=== PATIENT | female | born 1970 | race Caucasian/White ===

== ENCOUNTER 2021-11-19 22:21 | Emergency (ER) | payer MEDICARE, OTHER ==
[2021-11-19 22:28] VITALS: TEMP 97.2
[2021-11-19] MEDS ORDERED: ACETAMINOPHEN TAB 500 MG TAB PO STA (22:45)
[2021-11-19 22:52] VITALS: RESP 18
--- NOTE | 2021-11-19 22:54 | ED ---
General Adult HPI - General Chief complaint: Chest Pain Stated complaint: Chest Pain Time Seen by Provider: 11/19/21 22:31 Source: patient Mode of arrival: ambulatory Limitations: no limitations - History of Present Illness Initial comments: 51 year-old female patient presents with multiple complaints. She reports intermittent chest pain for the last two days. Pain comes randomly, no increase with physical activity. States that today the pain has been more constant. Reports a numb, "droopy" feeling over her chin and neck bilaterally. Reports headache. Denies it being the worst headache of her life. States she does feel like she has a "film" over her eyes. Reports feeling short of breath. Denies sweats. Denies any abdominal pain, nausea, vomiting, or diarrhea. Patient denies any recent rash, fever, chills, cough, back pain, dizziness, weakness, hematuria, dysuria, urinary urgency, urinary frequency, or any other complaints. She has history of hypertension. She is a current every day smoker. Family history of CVA and CAD in her father. - Related Data Allergies Allergy/AdvReac Type Severity Reaction Status Date / Time No Known Allergies Allergy Verified 11/19/21 22:25 Review of Systems ROS Statement: Those systems with pertinent positive or pertinent negative responses have been documented in the HPI. ROS Other: All systems not noted in ROS Statement are negative. Past Medical History Past Medical History: Hypertension History of Any Multi-Drug Resistant Organisms: None Reported Past Surgical History: Section, Cholecystectomy, Tonsillectomy Past Psychological History: Bipolar Smoking Status: Current every day smoker Past Alcohol Use History: Occasional Past Drug Use History: None Reported General Exam Limitations: no limitations General appearance: alert, in no apparent distress, other (This is a well- developed, well-nourished adult female) Respiratory exam: Present: normal lung sounds bilaterally. Absent: respiratory distress, wheezes, rales, rhonchi, stridor Cardiovascular Exam: Present: regular rate, normal rhythm, normal heart sounds. Absent: systolic murmur, diastolic murmur, rubs, gallop, clicks GI/Abdominal exam: Present: soft, normal bowel sounds. Absent: distended, tenderness, guarding, rebound, rigid Neurological exam: Present: alert, oriented X3, CN II-XII intact Psychiatric exam: Present: normal affect, normal mood Skin exam: Present: warm, dry, intact, normal color. Absent: rash Course Vital Signs 11/19/21 11/19/21 11/19/21 22:26 22:49 23:40 Temperature 97.2 F L Pulse Rate 69 78 60 Respiratory 20 18 18 Rate Blood Pressure 164/60 186/77 132/54 O2 Sat by Pulse 100 97 97 Oximetry 11/20/21 00:48 Temperature Pulse Rate 76 Respiratory 18 Rate Blood Pressure 139/58 O2 Sat by Pulse 97 Oximetry EKG Findings - EKG Comments: EKG Findings:: EKG obtained at 2239 shows normal sinus rhythm with a ventricular rate of 60, FL interval 204, QRS duration 74, QT 422, QTc 422. No evidence of ST elevation or depression. Medical Decision Making - Medical Decision Making 51-year-old female patient presented to the emergency department for evaluation of intermittent chest pain over the last 3 days. Also reporting some numbness to her chin and neck bilaterally. Neurologically she is intact with no focal deficits, NIH is 0. Labs reviewed and revealed normal troponin. CT brain negative. Chest x-ray is negative. EKG is unremarkable. I did discuss finding s and results with the patient. She does have couple being discharged home at this time to follow-up outpatient with her primary care physician and cardiology. Return parameters were discussed in detail. She verbalizes understanding and agrees with this plan. My attending is Dr. El. - Lab Data Result diagrams: 11/19/21 22:47 11/19/21 22:47 Lab Results 11/19/21 11/19/21 11/19/21 Range/Units 22:47 22:47 22:47 WBC 8.4 (3.8-10.6) k/uL RBC 4.54 (3.80-5.40) m/uL Hgb 14.3 (11.4-16.0) gm/dL Hct 42.4 (34.0-46.0) % MCV 93.5 (80.0-100.0) fL MCH 31.4 (25.0-35.0) pg MCHC 33.6 (31.0-37.0) g/dL RDW 12.6 (11.5-15.5) % Plt Count 222 (150-450) k/uL MPV 9.0 Neutrophils % 54 % Lymphocytes % 38 % Monocytes % 3 % Eosinophils % 2 % Basophils % 0 % Neutrophils # 4.5 (1.3-7.7) k/uL Lymphocytes # 3.2 (1.0-4.8) k/uL Monocytes # 0.3 (0-1.0) k/uL Eosinophils # 0.1 (0-0.7) k/uL Basophils # 0.0 (0-0.2) k/uL PT 9.5 (9.0-12.0) sec INR 0.9 (<1.2) APTT 24.5 (22.0-30.0) sec Sodium 140 (137-145) mmol/L Potassium 3.9 (3.5-5.1) mmol/L Chloride 107 (98-107) mmol/L Carbon Dioxide 25 (22-30) mmol/L Anion Gap 8 mmol/L BUN 18 H (7-17) mg/dL Creatinine 0.92 (0.52-1.04) mg/dL Est GFR (CKD-EPI)AfAm 83 (>60 ml/min/1.73 sqM) Est GFR (CKD-EPI)NonAf 72 (>60 ml/min/1.73 sqM) Glucose 119 H (74-99) mg/dL Calcium 9.3 (8.4-10.2) mg/dL Magnesium 2.1 (1.6-2.3) mg/dL Total Bilirubin 0.3 (0.2-1.3) mg/dL AST 24 (14-36) U/L ALT 18 (4-34) U/L Alkaline Phosphatase 134 H (38-126) U/L Troponin I (0.000-0.034) ng/mL Total Protein 7.2 (6.3-8.2) g/dL Albumin 4.2 (3.5-5.0) g/dL Lipase 164 (23-300) U/L 11/19/21 Range/Units 22:47 WBC (3.8-10.6) k/uL RBC (3.80-5.40) m/uL Hgb (11.4-16.0) gm/dL Hct (34.0-46.0) % MCV (80.0-100.0) fL MCH (25.0-35.0) pg MCHC (31.0-37.0) g/dL RDW (11.5-15.5) % Plt Count (150-450) k/uL MPV Neutrophils % % Lymphocytes % % Monocytes % % Eosinophils % % Basophils % % Neutrophils # (1.3-7.7) k/uL Lymphocytes # (1.0-4.8) k/uL Monocytes # (0-1.0) k/uL Eosinophils # (0-0.7) k/uL Basophils # (0-0.2) k/uL PT (9.0-12.0) sec INR (<1.2) APTT (22.0-30.0) sec Sodium (137-145) mmol/L Potassium (3.5-5.1) mmol/L Chloride (98-107) mmol/L Carbon Dioxide (22-30) mmol/L Anion Gap mmol/L BUN (7-17) mg/dL Creatinine (0.52-1.04) mg/dL Est GFR (CKD-EPI)AfAm (>60 ml/min/1.73 sqM) Est GFR (CKD-EPI)NonAf (>60 ml/min/1.73 sqM) Glucose (74-99) mg/dL Calcium (8.4-10.2) mg/dL Magnesium (1.6-2.3) mg/dL Total Bilirubin (0.2-1.3) mg/dL AST (14-36) U/L ALT (4-34) U/L Alkaline Phosphatase (38-126) U/L Troponin I <0.012 (0.000-0.034) ng/mL Total Protein (6.3-8.2) g/dL Albumin (3.5-5.0) g/dL Lipase (23-300) U/L - Radiology Data Radiology results: report reviewed, image reviewed CT brain without contrast was obtained. Report reviewed in its entirety. Impression by Dr. Hayden shows negative unenhanced head CT scan. Two-view x-ray of the chest is obtained. Report was reviewed in its entirety. Impression by Dr. Hayden shows normal chest. Disposition Clinical Impression: Chest pain, Facial paresthesia Disposition: HOME SELF-CARE Condition: Good Instructions (If sedation given, give patient instructions): Chest Pain (ED), Paresthesia (ED) Additional Instructions: Follow-up with screen printing loader unloader and primary care physician for further evaluation as soon as possible. Return to the emergency department immediately for any new, worsening, or concerning symptoms. Is patient prescribed a controlled substance at d/c from ED?: No Referrals: Mary Marmolejo MD [Primary Care Provider] - 1-2 days Gurpreet Gant MD [STAFF PHYSICIAN] - 1-2 days Time of Disposition: 00:24
[2021-11-19 23:00] LABS: Basophils % (A) 0 %; Eosinophils # (A) 0.1 k/uL (0-0.7); Eosinophils % (A) 2 %; HCT 42.4 % (34.0-46.0); HGB 14.3 gm/dL (11.4-16.0); Lymphocytes # (A) 3.2 k/uL (1.0-4.8); Lymphocytes % (A) 38 %; MCH 31.4 pg (25.0-35.0); MCHC 33.6 g/dL (31.0-37.0); MCV 93.5 fL (80.0-100.0); Monocytes # (A) 0.3 k/uL (0-1.0); Monocytes % (A) 3 %; Neutrophils # (A) 4.5 k/uL (1.3-7.7); Neutrophils % (A) 54 %; Platelet Count 222 k/uL (150-450); RBC 4.54 m/uL (3.80-5.40); RDW 12.6 % (11.5-15.5); WBC 8.4 k/uL (3.8-10.6)
[2021-11-19 23:10] LABS: INR 0.9 (<1.2); Partial Thromboplastin Time 24.5 sec (22.0-30.0); Prothrombin Time 9.5 sec (9.0-12.0)
[2021-11-19 23:19] LABS: Albumin 4.2 g/dL (3.5-5.0); Calcium 9.3 mg/dL (8.4-10.2); Magnesium 2.1 mg/dL (1.6-2.3); Potassium 3.9 mmol/L (3.5-5.1); Total Bilirubin 0.3 mg/dL (0.2-1.3); Total Protein 7.2 g/dL (6.3-8.2)
--- NOTE | 2021-11-19 23:55 | CT ---
EXAMINATION TYPE: CT brain wo con DATE OF EXAM: 11/19/2021 COMPARISON: None HISTORY: Dizziness, Headache CT DLP: 1162.40 mGycm Automated exposure control for dose reduction was used. Ventricles have normal size. There is no mass effect or midline shift. There is no sign of intracrani al hemorrhage. Calvarium is intact. There is normal aeration of the mastoid sinuses. IMPRESSION: Negative unenhanced head CT scan
--- NOTE | 2021-11-19 23:57 | XR ---
EXAMINATION TYPE: XR chest 2V DATE OF EXAM: 11/19/2021 COMPARISON: NONE HISTORY: Chest pain TECHNIQUE: 2 views FINDINGS: Heart and mediastinum are normal. Lungs are clear. Diaphragm is normal. Bony thorax is inta ct. IMPRESSION: Normal chest.
[2021-11-20] MEDS ORDERED: KETOROLAC 15 MG/ML 1 ML VIAL IVP STA (00:23)
[2021-11-20 00:49] VITALS: BP 139/58; PULSE 76
== END 2021-11-20 00:50 | disposition home or self-care (01) ==
LOC: EC 22:21
DX: R06.02 Shortness of breath (principal); R20.2 Paresthesia of skin; I10 Essential (primary) hypertension; F17.200 Nicotine dependence, unspecified, uncomplicated
CPT/HCPCS: 36415; 93005; 80053; 83690; 83735; 84484; 85025; 85610; 85730; 71046; 70450; 99285; J1885

== ENCOUNTER 2021-11-21 17:44 | Emergency (ER) | payer MEDICARE, OTHER ==
[2021-11-21 18:07] VITALS: TEMP 97.6
[2021-11-21] MEDS ORDERED: MORPHINE SULFATE 4 MG/ML SYRINGE IV STA (21:04)
[2021-11-21] MEDS ORDERED: ONDANSETRON 4 MG/2 ML VIAL IVP STA (21:04)
[2021-11-21] MEDS ORDERED: SODIUM CHLORIDE 0.9% 1,000 ML IV STA (21:04)
[2021-11-21 21:58] LABS: Basophils # (A) 0.1 k/uL (0-0.2); Basophils % (A) 1 %; Eosinophils # (A) 0.2 k/uL (0-0.7); Eosinophils % (A) 2 %; HGB 14.1 gm/dL (11.4-16.0); Lymphocytes # (A) 3.7 k/uL (1.0-4.8); Lymphocytes % (A) 34 %; MCH 31.4 pg (25.0-35.0); MCHC 33.7 g/dL (31.0-37.0); MCV 93.1 fL (80.0-100.0); Mean Platelet Volume 9.2; Monocytes # (A) 0.4 k/uL (0-1.0); Monocytes % (A) 4 %; Neutrophils # (A) 6.1 k/uL (1.3-7.7); Neutrophils % (A) 58 %; Platelet Count 211 k/uL (150-450); WBC 10.6 k/uL (3.8-10.6)
[2021-11-21 22:02] LABS: Appearance,Urine Clear (Clear); Bilirubin,Urine Negative (Negative); Blood,Urine Negative (Negative); Color,Urine Light Yellow; Glucose,Urine (UA) Negative (Negative); Ketones,Urine Negative (Negative); Leukocyte Esterase,Urine Negative (Negative); Nitrite,Urine Negative (Negative); Protein,Urine Negative (Negative); Specific Gravity,Urine 1.012 (1.001-1.035); Urobilinogen,Urine <2.0 mg/dL (<2.0)
[2021-11-21 22:09] LABS: ALT 17 U/L (4-34); AST 23 U/L (14-36); African American GFR (CKD) >90 (>60 ml/min/1.73 sqM); Albumin 3.9 g/dL (3.5-5.0); Alkaline Phosphatase 93 U/L (38-126); Anion Gap 9 mmol/L; Blood Urea Nitrogen 16 mg/dL (7-17); Calcium 9.3 mg/dL (8.4-10.2); Carbon Dioxide 23 mmol/L (22-30); Chloride 107 mmol/L (98-107); Glucose 115 mg/dL (74-99); Lipase 90 U/L (23-300); Non-African American GFR(CKD) >90 (>60 ml/min/1.73 sqM); Potassium 3.8 mmol/L (3.5-5.1); Sodium 139 mmol/L (137-145); Total Bilirubin 0.3 mg/dL (0.2-1.3); Total Protein 6.9 g/dL (6.3-8.2)
--- NOTE | 2021-11-22 00:19 | CT ---
EXAM: CT Abdomen and Pelvis With Intravenous Contrast CLINICAL HISTORY: ITS.REASON CT Reason: Lower abdominal pain; back pain TECHNIQUE: Axial computed tomography images of the abdomen and pelvis with intravenous contrast. CTDI is 3337.4 mGy and DLP is 70.47 mGy-cm. This CT exam was performed using one or more of the following dose reduction techniques: automated exposure control, adjustment of the mA and/or kV according to patient size, and/or use of iterative reconstruction technique. COMPARISON: No relevant prior studies available. FINDINGS: Lung bases: Unremarkable. No mass. No consolidation. ABDOMEN: Liver: Unremarkable. No mass. Gallbladder and bile ducts: Previous cholecystectomy. No biliary duct dilation is seen. Pancreas: Unremarkable. No mass. No ductal dilation. Spleen: Unremarkable. No splenomegaly. Adrenals: Unremarkable. No mass. Kidneys and ureters: Unremarkable. No solid mass. No hydronephrosis. Stomach and bowel: Bowel loops are nondilated. There is mild diverticulosis of the left and sigmoid colon. The appendix is normal. No acute inflammatory changes are seen involving the bowel. No mucosal thickening. PELVIS: Appendix: See above. Bladder: Unremarkable. No mass. Reproductive: Unremarkable as visualized. ABDOMEN and PELVIS: Intraperitoneal space: Unremarkable. No free air. No significant fluid collection. Bones/joints: Mild degenerative changes in the lumbar spine. No acute fracture or subluxation. Soft tissues: Unremarkable. Vasculature: Mild calcification of the abdominal aorta. No aneurysm or dissection. Lymph nodes: Unremarkable. No enlarged lymph nodes. IMPRESSION: Bowel loops are nondilated. There is mild diverticulosis of the left and sigmoid colon. The appendix is normal. No acute inflammatory changes are seen involving the bowel.
--- NOTE | 2021-11-22 00:22 | CT ---
EXAM: CT Lumbar Spine With Intravenous Contrast CLINICAL HISTORY: ITS.REASON CT Reason: Low back pain; abd pain TECHNIQUE: Axial computed tomography images of the lumbar spine with intravenous contrast. CTDI is 37.6 mGy and DLP is 3337.4 mGy-cm. This CT exam was performed using one or more of the following dose reduction techniques: automated exposure control, adjustment of the mA and/or kV according to patient size, and/or use of iterative reconstruction technique. COMPARISON: No relevant prior studies available. FINDINGS: Vertebrae: Mild degenerative disc disease and facet arthrosis in the lower lumbar spine. No acute fracture or subluxation is seen. The lumbar spine vertebral body heights are normally maintained. No compression fracture or burst fracture is seen. Discs/spinal canal/neural foramina: At L4-5 there is posterior and right-sided disc bulge measuring 4-5 mm combined with facet sclerosis and hypertrophy narrowing the thecal sac to 6 mm. There is mild left and severe right neural foraminal narrowing. At L3-4 there is mild loss of disc space height with 3 mm broad-based posterior disc bulge combined with facet hypertrophy narrowing the thecal sac to 8-9 mm. At L5-S1 there is 3-4 mm broad-based posterior disc bulge without snuffy and spinal stenosis. There is mild bilateral neural foraminal narrowing. Soft tissues: Unremarkable. IMPRESSION: 1. Mild degenerative disc disease and facet arthrosis in the lower lumbar spine. No acute fracture or subluxation is seen. 2. At L4-5 there is posterior and right-sided disc bulge measuring 4-5 mm combined with facet sclerosis and hypertrophy narrowing the thecal sac to 6 mm. There is mild left and severe right neural foraminal narrowing.
[2021-11-22] MEDS ORDERED: KETOROLAC 15 MG/ML 1 ML VIAL IVP STA (00:50)
[2021-11-22] MEDS ORDERED: DIAZEPAM 5 MG/ML 2 ML INJ IVP STA (00:50)
[2021-11-22] MEDS ORDERED: ACET/COD 300 MG/30 MG STARTER PACK 6 TAB BTL PO STA (00:51)
--- NOTE | 2021-11-22 00:52 | ED ---
General Adult HPI - General Chief complaint: Back Pain/Injury Stated complaint: Back injury Time Seen by Provider: 11/21/21 20:38 Source: patient Mode of arrival: wheelchair Limitations: no limitations - History of Present Illness Initial comments: 51 year-old female patient presents to the emergency department for evaluation of lower back pain and abdominal pain. Patient states a couple of hours prior to coming in she was bending forward to pull up her pants and felt a snap in the right lower back. States that pain went into her buttocks, bilateral hips, and into her abdomen. She does have history of herniated disc. Denies any lower extremity numbness or tingling. Denies any saddle anesthesia or loss of bowel or bladder control. Denies nausea, vomiting, constipation, or diarrhea. Denies fever or chills. States pain does worsen with movement. - Related Data Home Medications Medication Instructions Recorded Confirmed Carvedilol [Coreg] 12.5 mg PO BID 11/21/21 11/21/21 Cholecalciferol [Vitamin D3 (25 25 mcg PO DAILY 11/21/21 11/21/21 Mcg = 1000 Iu)] Folic Acid 0.4 mg PO DAILY 11/21/21 11/21/21 Magnesium Oxide [Mag-Ox] 400 mg PO DAILY 11/21/21 11/21/21 Vitamin B Complex 1 cap PO DAILY 11/21/21 11/21/21 hydroCHLOROthiazide [Hydrodiuril] 12.5 mg PO DAILY 11/21/21 11/21/21 Previous Rx's Medication Instructions Recorded Cyclobenzaprine [Flexeril] 10 mg PO TID #15 tab 11/22/21 Naproxen [EC-Naprosyn] 500 mg PO BID PRN #30 tab 11/22/21 Allergies Allergy/AdvReac Type Severity Reaction Status Date / Time No Known Allergies Allergy Verified 11/21/21 21:52 Review of Systems ROS Statement: Those systems with pertinent positive or pertinent negative responses have been documented in the HPI. ROS Other: All systems not noted in ROS Statement are negative. Past Medical History Past Medical History: Hypertension History of Any Multi-Drug Resistant Organisms: None Reported Past Surgical History: Section, Cholecystectomy, Tonsillectomy Past Psychological History: Bipolar Smoking Status: Current every day smoker Past Alcohol Use History: Occasional Past Drug Use History: None Reported General Exam Limitations: no limitations General appearance: alert, in no apparent distress, other (Physical well- developed, well-nourished adult in no acute distress.) ENT exam: Present: normal exam, normal oropharynx, mucous membranes moist Respiratory exam: Present: normal lung sounds bilaterally. Absent: respiratory distress, wheezes, rales, rhonchi, stridor Cardiovascular Exam: Present: regular rate, normal rhythm, normal heart sounds. Absent: systolic murmur, diastolic murmur, rubs, gallop, clicks GI/Abdominal exam: Present: soft, tenderness (Right lower quadrant, suprapubic, left lower quadrant), normal bowel sounds. Absent: distended, guarding, rebound, rigid Extremities exam: Present: normal inspection, full ROM, normal capillary refill, other (Skin to the lower extremities is pink, warm, dry. Cap refill less than 3 seconds. Pedal and posttibial pulses 2+). Absent: tenderness, pedal edema, joint swelling, calf tenderness Back exam: Present: normal inspection. Absent: vertebral tenderness Neurological exam: Present: alert, oriented X3, CN II-XII intact, other (strength in the lower extremities is 5/5.) Psychiatric exam: Present: normal affect, normal mood Skin exam: Present: warm, dry, intact, normal color. Absent: rash Course Vital Signs 11/21/21 11/22/21 18:05 01:03 Temperature 97.6 F Pulse Rate 70 61 Respiratory 16 18 Rate Blood Pressure 192/73 139/65 O2 Sat by Pulse 100 98 Oximetry Medical Decision Making - Medical Decision Making 51-year-old female patient presented to the emergency department today for evaluation of low back and lower abdominal pain that started after bending forward and feeling a snap in her back. Physical examination did reveal lower abdominal tenderness. She is neurologically intact with no focal deficits. No concerning symptoms for cauda equina. Labs reviewed and are unremarkable. CT of the abdomen and pelvis and lumbar spine were obtained and did reveal a disc bulge at L4 to L5 with severe foraminal narrowing and decrease in size of the thecal sac to 6 mm. I did discuss findings and results with the patient. She is to be discharged to follow-up with her primary care physician for recheck in 1-2 days. Given medication for her discomfort including muscle relaxer and anti-inflammatories. Return parameters were discussed in detail. She verbalizes understanding and agrees with this plan. My attending is Dr. El. - Lab Data Result diagrams: 11/21/21 21:53 11/21/21 21:53 Lab Results 11/21/21 11/21/21 11/21/21 Range/Units 21:53 21:53 21:53 WBC 10.6 (3.8-10.6) k/uL RBC 4.50 (3.80-5.40) m/uL Hgb 14.1 (11.4-16.0) gm/dL Hct 42.0 (34.0-46.0) % MCV 93.1 (80.0-100.0) fL MCH 31.4 (25.0-35.0) pg MCHC 33.7 (31.0-37.0) g/dL RDW 12.0 (11.5-15.5) % Plt Count 211 (150-450) k/uL MPV 9.2 Neutrophils % 58 % Lymphocytes % 34 % Monocytes % 4 % Eosinophils % 2 % Basophils % 1 % Neutrophils # 6.1 (1.3-7.7) k/uL Lymphocytes # 3.7 (1.0-4.8) k/uL Monocytes # 0.4 (0-1.0) k/uL Eosinophils # 0.2 (0-0.7) k/uL Basophils # 0.1 (0-0.2) k/uL Sodium 139 (137-145) mmol/L Potassium 3.8 (3.5-5.1) mmol/L Chloride 107 (98-107) mmol/L Carbon Dioxide 23 (22-30) mmol/L Anion Gap 9 mmol/L BUN 16 (7-17) mg/dL Creatinine 0.72 (0.52-1.04) mg/dL Est GFR (CKD-EPI)AfAm >90 (>60 ml/min/1.73 sqM) Est GFR (CKD-EPI)NonAf >90 (>60 ml/min/1.73 sqM) Glucose 115 H (74-99) mg/dL Calcium 9.3 (8.4-10.2) mg/dL Total Bilirubin 0.3 (0.2-1.3) mg/dL AST 23 (14-36) U/L ALT 17 (4-34) U/L Alkaline Phosphatase 93 (38-126) U/L Total Protein 6.9 (6.3-8.2) g/dL Albumin 3.9 (3.5-5.0) g/dL Lipase 90 (23-300) U/L Urine Color Light Yellow Urine Appearance Clear (Clear) Urine pH 5.0 (5.0-8.0) Ur Specific [place] 1.012 (1.001-1.035) Urine Protein Negative (Negative) Urine Glucose (UA) Negative (Negative) Urine Ketones Negative (Negative) Urine Blood Negative (Negative) Urine Nitrite Negative (Negative) Urine Bilirubin Negative (Negative) Urine Urobilinogen <2.0 (<2.0) mg/dL Ur Leukocyte Esterase Negative (Negative) - Radiology Data Radiology results: report reviewed, image reviewed CT abdomen and pelvis was obtained with contrast. Report was reviewed in its entirety. Impression by Dr. Nation shows mild degenerative disc disease and facet arthrosis in the lower lumbar spine. No acute fracture or subluxation is seen. At L4 to 5 years posterior and right-sided disc bulge measuring 4-5 mm combined with facet sclerosis and hypertrophy narrowing the thecal sac to 6 mm. There is mild left and severe right neural foraminal narrowing. CT abdomen and pelvis with contrast was obtained. Report was reviewed in its entirety. Impression by Dr. Nation shows bowel loops are not dilated. There is mild diverticulosis of the left and sigmoid colon. The appendix appears normal. No acute inflammatory changes are seen involving the bowel. Disposition Clinical Impression: Acute exacerbation of chronic low back pain Disposition: HOME SELF-CARE Condition: Good Instructions (If sedation given, give patient instructions): Acute Low Back Pain (ED) Additional Instructions: Take medications as directed. Follow-up through primary care physician for recheck in 1-2 days. Return for any new, worsening, or concerning symptoms. Prescriptions: Naproxen [EC-Naprosyn] 500 mg PO BID PRN #30 tab PRN Reason: Pain Cyclobenzaprine [Flexeril] 10 mg PO TID #15 tab Is patient prescribed a controlled substance at d/c from ED?: No Referrals: Mary Marmolejo MD [Primary Care Provider] - 1-2 days Time of Disposition: 00:52
[2021-11-22 01:06] VITALS: BP 139/65; PULSE 61; RESP 18
== END 2021-11-22 01:19 | disposition home or self-care (01) ==
LOC: EC 17:44
DX: M54.50 Low back pain, unspecified (principal); G89.29 Other chronic pain; I10 Essential (primary) hypertension; F17.200 Nicotine dependence, unspecified, uncomplicated
CPT/HCPCS: 36415; 80053; 83690; 85025; 81003; 72132; 74177; 99284; 96374; 96375; J2270; J3360; J2405; J1885; Q9967

== ENCOUNTER 2022-03-16 00:56 | Emergency (ER) | payer MEDICARE, OTHER ==
[2022-03-16 01:01] VITALS: BP 200/79; PULSE 71; RESP 20; TEMP 97.9
== END 2022-03-16 03:54 | disposition left against medical advice (07) ==
LOC: EC 00:56
DX: Z53.21 Procedure and treatment not carried out due to patient leaving prior to being seen by health care provider (principal)
CPT/HCPCS: 93005; 99499

== ENCOUNTER 2022-03-23 14:00 | Observation (INO) | payer MEDICARE, OTHER ==
[2022-03-23 14:08] VITALS: RESP 18
[2022-03-23 14:40] LABS: Basophils # (A) 0.1 k/uL (0-0.2); Basophils % (A) 1 %; Eosinophils # (A) 0.1 k/uL (0-0.7); Eosinophils % (A) 2 %; HCT 41.6 % (34.0-46.0); HGB 13.5 gm/dL (11.4-16.0); Lymphocytes # (A) 1.8 k/uL (1.0-4.8); Lymphocytes % (A) 24 %; MCH 29.4 pg (25.0-35.0); MCHC 32.4 g/dL (31.0-37.0); MCV 90.5 fL (80.0-100.0); Mean Platelet Volume 8.8; Monocytes # (A) 0.4 k/uL (0-1.0); Monocytes % (A) 5 %; Neutrophils # (A) 5.1 k/uL (1.3-7.7); Neutrophils % (A) 67 %; Platelet Count 206 k/uL (150-450); RBC 4.59 m/uL (3.80-5.40); RDW 12.4 % (11.5-15.5); WBC 7.6 k/uL (3.8-10.6)
[2022-03-23 14:51] LABS: ALT 22 U/L (4-34); AST 34 U/L (14-36); African American GFR (CKD) >90 (>60 ml/min/1.73 sqM); Albumin 4.6 g/dL (3.5-5.0); Alkaline Phosphatase 95 U/L (38-126); Anion Gap 10 mmol/L; Blood Urea Nitrogen 15 mg/dL (7-17); Calcium 9.5 mg/dL (8.4-10.2); Carbon Dioxide 23 mmol/L (22-30); Chloride 107 mmol/L (98-107); Glucose 125 mg/dL (74-99); Magnesium 2.3 mg/dL (1.6-2.3); Non-African American GFR(CKD) >90 (>60 ml/min/1.73 sqM); Potassium 4.7 mmol/L (3.5-5.1); Sodium 140 mmol/L (137-145); Total Bilirubin 0.5 mg/dL (0.2-1.3); Total Protein 7.9 g/dL (6.3-8.2)
[2022-03-23 15:12] LABS: INR 0.8 (<1.2); Prothrombin Time 9.5 sec (9.0-12.0)
[2022-03-23 15:21] LABS: Partial Thromboplastin Time 21.1 sec (22.0-30.0)
--- NOTE | 2022-03-23 16:01 | XR ---
EXAMINATION TYPE: XR chest 2V DATE OF EXAM: 03/23/2022 COMPARISON: Prior chest x-ray November 19, 2021 HISTORY: Chest pain today. TECHNIQUE: Frontal and lateral views of the chest are obtained. FINDINGS: There is no suspicious focal air space opacity, pleural effusion, or pneumothorax seen. T he cardiac silhouette size is within normal limits. The osseous structures are intact. IMPRESSION: No acute process. No significant change from prior.
[2022-03-23] MEDS ORDERED: NITROGLYCERIN SL TABS 0.4 MG TAB SUBLINGUAL STA (16:11)
[2022-03-23] MEDS ORDERED: ASPIRIN 81 MG PO STA (16:11)
--- NOTE | 2022-03-23 17:00 | ED ---
General Adult HPI - General Chief complaint: Chest Pain Stated complaint: Chest Pain Time Seen by Provider: 03/23/22 15:45 Source: patient, RN notes reviewed, old records reviewed Mode of arrival: ambulatory Limitations: no limitations - History of Present Illness Initial comments: Patient is a 51-year-old female with past medical history remarkable for hypertension, as well as a family medical history of cardiac disease presents emergency Department complaining of chest pain. Onset was around 10 AM this morning. Describes it as a pleuritic, substernal chest pain that originally was about a 6 out of 10 in nature and currently is 4 out of 10 on my evaluation. Denies shortness of breath. Denies cough. Denies abdominal pain, nausea, vomiting. His no known cardiac history. States that the pain is improved at this time. States it does not radiate. Unknown palliative or provocative factors. Presents for further evaluation. I evaluated the patient when she was placed in a room. Workup was already started. - Related Data Home Medications Medication Instructions Recorded Confirmed Carvedilol [Coreg] 12.5 mg PO BID 11/21/21 03/23/22 Cholecalciferol [Vitamin D3 (25 25 mcg PO DAILY 11/21/21 03/23/22 Mcg = 1000 Iu)] Magnesium Oxide [Mag-Ox] 400 mg PO DAILY 11/21/21 03/23/22 Vitamin B Complex 1 cap PO DAILY 11/21/21 03/23/22 hydroCHLOROthiazide [Hydrodiuril] 12.5 mg PO DAILY 11/21/21 03/23/22 Ascorbic Acid [Vitamin C] 1,000 mg PO DAILY 03/23/22 03/23/22 Aspirin [[place] Aspirin EC] 81 mg PO ONCE PRN 03/23/22 03/23/22 Folic Acid 0.8 mg PO DAILY 03/23/22 03/23/22 Allergies Allergy/AdvReac Type Severity Reaction Status Date / Time No Known Allergies Allergy Verified 03/23/22 17:17 Review of Systems ROS Statement: Those systems with pertinent positive or pertinent negative responses have been documented in the HPI. Review of Systems: CONST: Denies fever EYES: Denies blurry vision ENT: Denies nasal congestion C/V: Endorses chest pain RESP: Denies shortness of breath GI: Denies abdominal pain : Denies dysuria SKIN: Denies rash. MSK: Denies joint pain. NEURO: Denies headache ROS Other: All systems not noted in ROS Statement are negative. Past Medical History Past Medical History: Hypertension History of Any Multi-Drug Resistant Organisms: None Reported Past Surgical History: Section, Cholecystectomy, Tonsillectomy Past Psychological History: Bipolar Smoking Status: Vaper Past Alcohol Use History: Occasional Past Drug Use History: None Reported General Exam - General Exam Comments Initial Comments: General: Appears in no acute distress. HEAD: Normal with no signs of head trauma. EYES: PERRLA, EOMI, conjunctiva normal, no discharge. ENT: Hearing grossly intact, normal oropharynx. RESPIRATORY: Clear breath sounds bilaterally. No wheezes, rales, or rhonchi. C/V: Regular rate and rhythm. S1 and S2 auscultated, no edema, peripheral pulses 2+ and intact throughout. chest pain is nonreproducible on palpation. ABD: Abd is soft, nontender, nondistended EXT: Normal range of motion, no obvious deformity SKIN: No rashes or lesions observed on exposed skin. NEURO: Alert and oriented 4. No focal deficits. Limitations: no limitations Course Vital Signs 03/23/22 14:04 Temperature 97.8 F Pulse Rate 62 Respiratory 18 Rate Blood Pressure 157/74 O2 Sat by Pulse 97 Oximetry Medical Decision Making - Medical Decision Making Based the patient's presentation and physical exam, I'm concerned for possible c ardiopulmonary etiology for her current symptoms. Workup was already starting in triage. EKG shows no signs of acute ischemia. Laboratory studies remarkable for a negative troponin. The remainder of labs are unremarkable. Chest x-ray shows no acute cardio pulmonary process. I think her that I would like to add on a d-dimer at this time to which she was in agreement. We will give her dose of aspirin as well as nitroglycerin. She was in agreement this plan. D-dimer did reveal to be positive at 1.27. I did recommend a CT angiogram at this time and she was in agreement this plan. I spoke to her, she states that nitro tablet eliminated her chest pain. Went from a 4-5/10 to a 0/10. Sling to her that no matter the results of the CT, I would like to keep her overnight. She was in agreement this plan. CT angiogram showed no PE. After the patient. She'll be started on heparin for unstable angina. She was in agreement this plan. Cardiology was consulted, echo was ordered. I spoke with Dr. Hood of [facility] as the patient will be admitted to observation. - Lab Data Result diagrams: 03/23/22 14:34 03/23/22 14:34 Lab Results 03/23/22 03/23/22 03/23/22 Range/Units 14:34 14:34 14:34 WBC 7.6 (3.8-10.6) k/uL RBC 4.59 (3.80-5.40) m/uL Hgb 13.5 (11.4-16.0) gm/dL Hct 41.6 (34.0-46.0) % MCV 90.5 (80.0-100.0) fL MCH 29.4 (25.0-35.0) pg MCHC 32.4 (31.0-37.0) g/dL RDW 12.4 (11.5-15.5) % Plt Count 206 (150-450) k/uL MPV 8.8 Neutrophils % 67 % Lymphocytes % 24 % Monocytes % 5 % Eosinophils % 2 % Basophils % 1 % Neutrophils # 5.1 (1.3-7.7) k/uL Lymphocytes # 1.8 (1.0-4.8) k/uL Monocytes # 0.4 (0-1.0) k/uL Eosinophils # 0.1 (0-0.7) k/uL Basophils # 0.1 (0-0.2) k/uL PT 9.5 (9.0-12.0) sec INR 0.8 (<1.2) APTT 21.1 L (22.0-30.0) sec D-Dimer (<0.60) mg/L FEU Sodium 140 (137-145) mmol/L Potassium 4.7 (3.5-5.1) mmol/L Chloride 107 (98-107) mmol/L Carbon Dioxide 23 (22-30) mmol/L Anion Gap 10 mmol/L BUN 15 (7-17) mg/dL Creatinine 0.72 (0.52-1.04) mg/dL Est GFR (CKD-EPI)AfAm >90 (>60 ml/min/1.73 sqM) Est GFR (CKD-EPI)NonAf >90 (>60 ml/min/1.73 sqM) Glucose 125 H (74-99) mg/dL Calcium 9.5 (8.4-10.2) mg/dL Magnesium 2.3 (1.6-2.3) mg/dL Total Bilirubin 0.5 (0.2-1.3) mg/dL AST 34 (14-36) U/L ALT 22 (4-34) U/L Alkaline Phosphatase 95 (38-126) U/L Troponin I (0.000-0.034) ng/mL NT-Pro-B Natriuret Pep pg/mL Total Protein 7.9 (6.3-8.2) g/dL Albumin 4.6 (3.5-5.0) g/dL 03/23/22 03/23/22 03/23/22 Range/Units 14:34 14:34 16:11 WBC (3.8-10.6) k/uL RBC (3.80-5.40) m/uL Hgb (11.4-16.0) gm/dL Hct (34.0-46.0) % MCV (80.0-100.0) fL MCH (25.0-35.0) pg MCHC (31.0-37.0) g/dL RDW (11.5-15.5) % Plt Count (150-450) k/uL MPV Neutrophils % % Lymphocytes % % Monocytes % % Eosinophils % % Basophils % % Neutrophils # (1.3-7.7) k/uL Lymphocytes # (1.0-4.8) k/uL Monocytes # (0-1.0) k/uL Eosinophils # (0-0.7) k/uL Basophils # (0-0.2) k/uL PT (9.0-12.0) sec INR (<1.2) APTT (22.0-30.0) sec D-Dimer 1.27 H (<0.60) mg/L FEU Sodium (137-145) mmol/L Potassium (3.5-5.1) mmol/L Chloride (98-107) mmol/L Carbon Dioxide (22-30) mmol/L Anion Gap mmol/L BUN (7-17) mg/dL Creatinine (0.52-1.04) mg/dL Est GFR (CKD-EPI)AfAm (>60 ml/min/1.73 sqM) Est GFR (CKD-EPI)NonAf (>60 ml/min/1.73 sqM) Glucose (74-99) mg/dL Calcium (8.4-10.2) mg/dL Magnesium (1.6-2.3) mg/dL Total Bilirubin (0.2-1.3) mg/dL AST (14-36) U/L ALT (4-34) U/L Alkaline Phosphatase (38-126) U/L Troponin I <0.012 <0.012 (0.000-0.034) ng/mL NT-Pro-B Natriuret Pep pg/mL Total Protein (6.3-8.2) g/dL Albumin (3.5-5.0) g/dL 03/23/22 Range/Units 16:11 WBC (3.8-10.6) k/uL RBC (3.80-5.40) m/uL Hgb (11.4-16.0) gm/dL Hct (34.0-46.0) % MCV (80.0-100.0) fL MCH (25.0-35.0) pg MCHC (31.0-37.0) g/dL RDW (11.5-15.5) % Plt Count (150-450) k/uL MPV Neutrophils % % Lymphocytes % % Monocytes % % Eosinophils % % Basophils % % Neutrophils # (1.3-7.7) k/uL Lymphocytes # (1.0-4.8) k/uL Monocytes # (0-1.0) k/uL Eosinophils # (0-0.7) k/uL Basophils # (0-0.2) k/uL PT (9.0-12.0) sec INR (<1.2) APTT (22.0-30.0) sec D-Dimer (<0.60) mg/L FEU Sodium (137-145) mmol/L Potassium (3.5-5.1) mmol/L Chloride (98-107) mmol/L Carbon Dioxide (22-30) mmol/L Anion Gap mmol/L BUN (7-17) mg/dL Creatinine (0.52-1.04) mg/dL Est GFR (CKD-EPI)AfAm (>60 ml/min/1.73 sqM) Est GFR (CKD-EPI)NonAf (>60 ml/min/1.73 sqM) Glucose (74-99) mg/dL Calcium (8.4-10.2) mg/dL Magnesium (1.6-2.3) mg/dL Total Bilirubin (0.2-1.3) mg/dL AST (14-36) U/L ALT (4-34) U/L Alkaline Phosphatase (38-126) U/L Troponin I (0.000-0.034) ng/mL NT-Pro-B Natriuret Pep 59 pg/mL Total Protein (6.3-8.2) g/dL Albumin (3.5-5.0) g/dL - EKG Data -: EKG Interpreted by Me EKG Comments: 12-lead Electrocardiogram Interpretation Note EKG was reviewed and interpreted by myself. 12-lead ECG performed at 1412 is interpreted by me as revealing normal sinus rhythm at a rate of 58 beats per minute. [place] is normal. [place] interval is 228 ms, first-degree block. QRS duration is 80 ms, QTc is 410 ms. Patient has an isolated slight T-wave inversion in lead III.. There were no ST or T wave abnormalities to suggest myocardial ischemia or injury. R wave progression across the precordium was satisfactory. By my interpretation this EKG is non-diagnostic for acute ischemia. Disposition Clinical Impression: Unstable angina Disposition: ADMITTED IP TO THIS HOSP Condition: Stable Time of Disposition: 18:50
--- NOTE | 2022-03-23 19:01 | CT ---
EXAMINATION TYPE: CT chest angio for PE DATE OF EXAM: 03/23/2022 COMPARISON: None HISTORY: Chest pain, elevated d-dimer CT DLP: 466.3 mGycm Automated exposure control for dose reduction was used. CONTRAST: Performed with IV Contrast, patient injected with 100 mL of Isovue 370. There are Three-D postprocessed images. The lungs are clear of infiltrate. No pleural effusion. Heart size is normal. No pericardial effusion . There is no mediastinal adenopathy. There are no hilar masses. Heart size is normal. No evidence of t horacic aortic aneurysm or dissection. There is normal contrast opacification of the pulmonary arteries. No filling defect. The thoracic spine is intact. No compression fracture. Sternum is intact. The ribs are intact. IMPRESSION: Negative CT angiogram of the chest. No evidence of pulmonary embolism.
[2022-03-23] MEDS ORDERED: HEPARIN SODIUM 1,000 UN/ML (10ML VL) IV ONE (19:15)
[2022-03-23] MEDS ORDERED: HEPARIN SODIUM 1,000 UN/ML (10ML VL) IV PRN (19:15)
[2022-03-23] MEDS ORDERED: NALOXONE 0.4 MG/ML 1 ML VIAL IV PRN (19:16)
[2022-03-23] MEDS ORDERED: NITROGLYCERIN SL TABS 0.4 MG TAB SUBLINGUAL PRN (19:16)
[2022-03-23] MEDS: HEPARIN SOD,PORK IN 0.45% NACL 25,000 UNIT in 0.45% NACL 1 250ML.BAG IV SCH (21:41)
--- NOTE | 2022-03-24 01:19 | P.HPIM ---
History of Present Illness H&P Date: 03/23/22 Chief Complaint: Chest pain 51-year-old female with hypertension Patient comes in with sudden onset chest pain claims that woke her up from sleep at around 10:30 am however didn't come to the hospital until later that afternoon around 3 PM when she complained about chest pain persistently she reports severe pain 810 in severity associated with palpitations denies any naus ea vomiting. Denies any cardiac history in the past. Denies any recent travel or injury he works full-time job. In the ED d-dimer was elevated in March the chest was negative Troponins are negative 3 List of the labs are unremarkable Review of Systems Pertinent positives as noted in HPI. All other systems were reviewed and are negative Past Medical History Past Medical History: Hypertension History of Any Multi-Drug Resistant Organisms: None Reported Past Surgical History: Section, Cholecystectomy, Tonsillectomy Past Psychological History: Bipolar Smoking Status: Vaper Past Alcohol Use History: Occasional Past Drug Use History: None Reported - Past Family History Family Family Medical History: Coronary Artery Disease (CAD) Medications and Allergies Home Medications Medication Instructions Recorded Confirmed Type Carvedilol [Coreg] 12.5 mg PO BID 11/21/21 03/23/22 History Cholecalciferol [Vitamin D3 (25 25 mcg PO DAILY 11/21/21 03/23/22 History Mcg = 1000 Iu)] Magnesium Oxide [Mag-Ox] 400 mg PO DAILY 11/21/21 03/23/22 History Vitamin B Complex 1 cap PO DAILY 11/21/21 03/23/22 History hydroCHLOROthiazide [Hydrodiuril] 12.5 mg PO DAILY 11/21/21 03/23/22 History Ascorbic Acid [Vitamin C] 1,000 mg PO DAILY 03/23/22 03/23/22 History Aspirin [[place] Aspirin EC] 81 mg PO ONCE PRN 03/23/22 03/23/22 History Folic Acid 0.8 mg PO DAILY 03/23/22 03/23/22 History Allergies Allergy/AdvReac Type Severity Reaction Status Date / Time No Known Allergies Allergy Verified 03/23/22 17:17 Physical Exam Vitals: Vital Signs Temp Pulse Resp BP Pulse Ox 03/23/22 14:04 97.8 F 62 18 157/74 97 Intake and Output 03/23/22 03/23/22 03/23/22 06:59 14:59 22:59 Other: Weight 106.594 kg Constitutional: No acute distress, conversant, pleasant Eyes: Anicteric sclerae, moist conjunctiva, Pupils equal round reactive to light ENMT: NC/AT Oropharynx clear, no erythema, or exudates Neck: Supple, FROM, no masses, or JVD No carotid bruits No thyromegaly Lungs: Clear to auscultation Clear to percussion Normal respiratory effort, no accessory muscle use Cardiovascular: Heart regular in rate and rhythm, No murmurs, gallops, or rubs No peripheral edema Abdominal: Soft Nontender, no guarding, rebound or rigidity Abdomen moving with respiration Normoactive bowel sounds No hepatomegaly, No splenomegaly No palpable mass No abdominal wall hernia noted Skin: Normal temperature, tone, texture, turgor No induration No subcutaneous nodules No rash, lesions No ulcers Extremities: No digital cyanosis No clubbing Pedal pulses intact and symmetrical Radial pulses intact and symmetrical No calf tenderness Psychiatric: Alert and oriented to person, place and time Appropriate affect fair judgement Neuro Muscles Strength 5/5 in all 4 extremities Sensation to light touch grossly present throughout Cranial nerves II-XII grossly intact No focal sensory deficits Lymphatics: no palpable cervical or supraclavicular , or inguinal lymph nodes Results CBC & Chem 7: 03/23/22 14:34 03/23/22 14:34 Labs: Abnormal Lab Results - Last 24 Hours (Table) 03/23/22 03/23/22 03/23/22 Range/Units 14:34 14:34 14:34 APTT 21.1 L (22.0-30.0) sec D-Dimer 1.27 H (<0.60) mg/L FEU Glucose 125 H (74-99) mg/dL Assessment and Plan Assessment: atypical chest pain rule out ACS EKG no acute changes CXR no acute pathology trops negative X3 hospital monitor monitor vital signs ASA, statin cardiology consult A1c, lipid panel , TSH pain control Currently on heparin drip Elevated d-dimer, CT angiogram of the chest was negative for acute PE Hypertension controlled resume home blood pressure medications Coreg Full code DVT prophylaxis currently on heparin drip started in the ED Anticipated length of stay less than 2 midnights
[2022-03-24 05:27] LABS: INR 0.9 (<1.2); Partial Thromboplastin Time 29.2 sec (22.0-30.0); Prothrombin Time 9.7 sec (9.0-12.0)
[2022-03-24] MEDS: ASPIRIN 81 MG PO SCH (08:29)
[2022-03-24] MEDS: hydroCHLOROthiazide 12.5 MG CAP PO SCH (08:29)
[2022-03-24] MEDS: carvediloL 12.5 MG TAB PO SCH ×2 (08:29→19:06)
[2022-03-24] MEDS: ACETAMINOPHEN TAB 325 MG TAB PO PRN (08:42)
[2022-03-24 09:04] LABS: Basophils # (A) 0.06 X 10*3/uL (0.00-0.10); Basophils % (A) 0.7 %; Eosinophils # (A) 0.17 X 10*3/uL (0.04-0.35); HCT 38.8 % (37.2-46.3); HGB 12.5 g/dL (12.0-15.0); Immature Grans, Automated 0.3 %; Lymphocytes # (A) 3.35 X 10*3/uL (0.90-5.00); Lymphocytes % (A) 38.7 %; MCHC 32.2 g/dL (32.0-37.0); Mean Platelet Volume 12.2 fL (9.5-12.2); Monocytes # (A) 0.53 X 10*3/uL (0.20-1.00); Monocytes % (A) 6.1 %; NRBC Per 100 WBC 0 /100 WBCS (0.0-0.0); Neutrophils # (A) 4.51 X 10*3/uL (1.80-7.70); Neutrophils % (A) 52.2 %; Platelet Count 199 X 10*3/uL (140-440); RBC 4.17 X 10*6/uL (4.10-5.20); RDW 12.3 % (11.5-14.5); WBC 8.65 X 10*3/uL (4.50-10.00)
[2022-03-24 09:08] LABS: Anion Gap 12 mmol/L (10.00-18.00); BUN/Creat Ratio 18.13 Ratio (12.00-20.00)
[2022-03-24 10:47] LABS: Chloride 105; Glucose 109; Potassium 3.9; Sodium 142
[2022-03-24 10:48] LABS: African American GFR (CKD) >90; Blood Urea Nitrogen 14.5; Calcium 8.8
[2022-03-24 10:53] LABS: Carbon Dioxide 25.1
--- NOTE | 2022-03-24 10:58 | CONS ---
CONSULTATION CHIEF COMPLAINT: Chest pain. HISTORY OF PRESENT ILLNESS: Nabila is a 51-year-old lady with hypertension and dyslipidemia as coronary risk factors who presented to hospital complaining of chest pain. She states that she was in her sleep, woke her up with precordial chest discomfort that she describes as a pressure that radiated down to her left arm. Mild to moderate intensity at rest. She was concerned. Came to the hospital and has been admitted as unstable angina. She did not have shortness of breath or diaphoresis. She works at [employer] and does a lot of physical work and there is no prior history of exertional chest pain. There is no history of coronary artery disease or congestive heart failure. At the time of my evaluation this morning, she is chest pain free, hemodynamically stable and in no apparent distress. She is on IV heparin. EKG shows sinus rhythm with poor R-wave progression and nonspecific T-wave changes. She had a CT scan of the chest that was negative for pulmonary embolism. Given her symptoms and the risk factors, I advised her to undergo cardiac catheterization to evaluate her coronary anatomy. The patient understanding risks benefits is going to think over this and make up her mind. If she decides to go through cardiac cath, we will do it tomorrow. If she does not, then they will discharge her home and arrange for an outpatient stress test. PAST MEDICAL HISTORY: Significant for hypertension and dyslipidemia. CURRENT MEDICATIONS: Include aspirin, ascorbic acid, HydroDIURIL, Coreg. ALLERGIES: There are no known drug allergies. FAMILY HISTORY: Significant for premature coronary artery disease. SOCIAL HISTORY: Negative for smoking, EtOH abuse or drug abuse. REVIEW OF SYSTEMS: HEENT is unremarkable. CARDIAC as described above. RESPIRATORY negative. GI negative. GENITOURINARY negative. ALLERGY negative. SKIN negative. MUSCULOSKELETAL: Negative. DERM negative. CONSTITUTIONAL negative. ONCOLOGICAL negative. SUPERVISOR HAND SILVERING negative. Rest of the system review is not relevant. EXAM: Comfortable at rest. Vital signs are stable. There is no jugular venous distention. Carotid upstroke is normal. There is no bruit. Chest exam reveals good air entry bilaterally. Heart exam reveals first and second heart sounds. No gallop. No murmur. No rub. Abdomen is soft, nontender. Examination of extremities did not reveal any edema. Peripheral pulses are felt. LABS: Labs show a hemoglobin of 12.5, platelet count is 199, potassium is 4.7. Creatinine is 0.7. Troponins are negative. BNP is normal. ASSESSMENT AND PLAN: Unstable angina. PLAN: I will continue the patient on the current medications. Review the echocardiogram on her and decide on further course of action what the patient decides tomorrow morning. MECHELLE / SIMIN: [id number] /
--- NOTE | 2022-03-24 11:54 | CA ---
Transthoracic Echo Report Name: Nabila Stiles Age: 51 Gender: F : 1970 Exam Date: 03/24/2022 07:22 Exam Location: [facility] Ht (in): 67 Wt (lb): 235 Ordering Physician: Benjamin Jones MD Attending/Referring Phys: [employer] Superintendent Amanda Higgins RDCS Procedure CPT: Indications: Chest Pain Cardiac Hx: Technical Quality: Good Contrast 1: Total Dose (mL): Contrast 2: Total Dose (mL): MEASUREMENTS (Male / Female) Normal Values 2D ECHO LV Diastolic Diameter PLAX 4.8 cm 4.2 - 5.9 / 3.9 - 5.3 cm LV Systolic Diameter PLAX 1.6 cm IVS Diastolic Thickness 1.1 cm 0.6 - 1.0 / 0.6 - 0.9 cm LVPW Diastolic Thickness 1.2 cm 0.6 - 1.0 / 0.6 - 0.9 cm LV Relative Wall Thickness 0.5 RV Internal Dim ED PLAX 2.6 cm LVOT Diameter 1.8 cm LA Volume 36.6 cm??? 18 - 58 / 22 - 52 cm??? M-MODE Aortic Root Diameter MM 2.7 cm LA Systolic Diameter MM 4.0 cm LA Ao Ratio MM 1.5 MV E Point Septal Separation 1.0 cm AV Cusp Separation MM 1.7 cm DOPPLER AV Peak Velocity 229.9 cm/s AV Peak Gradient 21.1 mmHg AV Mean Velocity 162.7 cm/s AV Mean Gradient 12.0 mmHg AV Velocity Time Integral 52.7 cm AI Peak Velocity 238.0 cm/s AI Peak Gradient 22.7 mmHg AI Pressure Half Time 722.7 ms LVOT Peak Velocity 143.8 cm/s LVOT Peak Gradient 8.3 mmHg AV Area Cont Eq pk 1.6 cm??? MV Area PHT 2.4 cm??? MR Peak Velocity 126.7 cm/s MR Peak Gradient 6.4 mmHg Mitral E Point Velocity 84.2 cm/s Mitral A Point Velocity 81.2 cm/s Mitral E to A Ratio 1.0 MV Deceleration Time 322.5 ms MV E' Velocity 7.5 cm/s Mitral E to MV E' Ratio 11.2 TR Peak Velocity 188.5 cm/s TR Peak Gradient 14.2 mmHg Right Ventricular Systolic Press 18.5 mmHg FINDINGS Left Ventricle Mildly increased septal wall thickness. Mildly increased posterior wall thickness. Left ventricular ejection fraction is estimated at 55-60Normal left ventricular systolic function with no obvious regional wall motion abnormalities. %. Left ventricular cavity size normal. Right Ventricle The right ventricle is normal in size and function. Right Atrium The right atrium is normal in size. Left Atrium The left atrium is normal in size. Mitral Valve Prolapse of the posterior mitral valve leaflet. . There is mild mitral regurgitation. Aortic Valve Mild aortic stenosis with a peak gradient of 21 mmHg and a mean gradient of 12 mmHg. . There is a trace of aortic regurgitation. Tricuspid Valve Structurally normal tricuspid valve without significant stenosis. Pulmonary artery systolic pressure is normal. Trace tricuspid regurgitation. Pulmonic Valve Structurally normal pulmonic valve without significant stenosis. There is no pulmonic regurgitation. Pericardium Normal pericardium without effusion. Aorta Normal aortic root dimension. CONCLUSIONS Left ventricular systolic function is normal Mild aortic stenosis Mild mitral regurgitation Previewed by: Dr. Norm Herrera MD (Electronically Signed) Final Date: 24 Mar 2022 11:53
--- NOTE | 2022-03-24 14:06 | P.PN ---
Subjective Progress Note Date: 03/24/22 Hospital course: Patient is a very pleasant 51-year-old female with a past medical history of hypertension. Patient presented to the emergency department on 03/23/22 with a chief complaint of awakening from sleep with chest pain/pressure accompanied by palpitations. She underwent full evaluation in the emergency department. Chest x-ray negative for acute cardiopulmonary process. CBC and CMP were unremarkable. Troponin was negative at less than 0.012. ProBNP was 59. EKG was completed revealing sinus bradycardia at 58 bpm with a first-degree AV block with AK interval of 228 ms. D-dimer was elevated at 1.27 and a CTA chest was completed negative for pulmonary emboli. Patient was admitted under our services with consultation to cardiology. Troponins trended throughout the night and negative at less than 0.0124 draws. Echocardiogram was completed revealing a normal EF of 55-60% with no significant valvular abnormalities reported. Cardiology evaluating recommending patient to continue heparin infusion with plans to reevaluate tomorrow morning to determine outpatient stress versus inpatient cardiac cath. Physical exam: Patient seen and fully evaluated at the bedside this morning. She was visiting with family. She remains on heparin infusion for treatment of unstable angina. Patient reports currently previously reported chest pain/pressure has resolved but she continues to have a soreness to her midsternal chest. She denies having any other complaints at this time including headache, lightheadedness, dizziness, palpitations, shortness of breath, nausea, or experiencing any numbness/tingling/weakness in her extremities. Patient did discuss with card iology the possibility of cardiac cath versus outpatient stress test. Patient to continue to be monitored overnight and cardiology will reevaluate and give their recommendations in the morning. Patient and family updated on plan and deny having any questions at this time. Patient to continue daily medication regimen with aspirin, carvedilol, hydrochlorothiazide, as well as heparin infusion and as needed sublingual nitro. Vital signs reviewed and stable. General: Nontoxic, no distress and appears stated age. Derm: Skin warm and dry, normal coloration for ethnicity. Head: Atraumatic, normocephalic and symmetric. Eyes: EOMs intact, no lid lag, and anicteric sclera Mouth: no lip lesions, mucus membranes moist Cardiovascular: regular rate and rhythm with normal S1S2, no murmur, positive posterior tibial pulses bilaterally, and cap refill < 2 seconds. Lungs: Respirations even, regular, and unlabored on room air. Lungs CTA bilaterally, no rhonchi, no rales, no wheezing, and no accessory muscle usage. Abdominal: soft, nontender to palpation, no guarding, no appreciable organomeg tisha Ext: ROM intact. No gross muscle atrophy, no edema, no contractures Neuro: Speech clear, face symmetrical and CN II-XII grossly intact with no noted focal neuro deficits Psych: Alert and oriented to person, place, time, and situation. Appropriate and pleasant affect. Assessment and Plan of Care: Chest pain, rule out acute coronary event Unstable angina -Cardiology following, recommending continuation of heparin infusion with plans to reevaluate tomorrow morning to determine outpatient stress test versus inpatient cardiac cath, appreciate further recommendations -Telemetry monitoring -Continuation of heparin infusion -Cardiac diet, NPO at midnight -Aspirin, atorvastatin, and metoprolol -Lipid profile with a.m. labs. -Echocardiogram revealing normal EF of 55-60% Hypertension -Monitor vital signs and continue daily medication regimen with carvedilol 12.5 mg twice daily with meals and hydrochlorothiazide 12.5 mg daily. CODE STATUS: Full code DVT prophylaxis: Heparin Discussed with: Patient, cardiology, and RN Anticipated discharge date: Possibly tomorrow Anticipated discharge place: Home A total of 31 minutes was spent on the care of this complex patient more than 50% of the time was spent in counseling and care coordination. I reviewed the documentation as provided by the MALIKA above, who is the original author of this note. I agree with the documented assessment and plan, with the following changes: None Objective - Vital Signs Vital signs: Vital Signs Temp 98.0 F 03/24/22 08:15 Pulse 49 L 03/24/22 08:15 Resp 18 03/24/22 08:15 BP 145/75 03/24/22 08:15 Pulse Ox 99 03/24/22 08:15 FiO2 Intake & Output 03/23/22 03/24/22 03/24/22 18:59 06:59 18:59 Intake Total 84.325 Balance 84.325 Weight 106.594 kg 106.594 kg Intake: Intake, IV Titration 84.325 Amount Heparin Sod,Pork in 0.45% 84.325 NaCl 25,000 unit In 0.45 % NaCl 1 250ml.bag @ 9.38 UNITS/KG/HR 9.999 mls/hr IV .Q24H [facility] Rx#: [id number] - Labs CBC & Chem 7: 03/24/22 04:33 03/24/22 04:33 Labs: Abnormal Lab Results - Last 24 Hours (Table) 03/23/22 03/23/22 03/23/22 Range/Units 14:34 14:34 14:34 APTT 21.1 L (22.0-30.0) sec D-Dimer 1.27 H (<0.60) mg/L FEU Glucose 125 H (74-99) mg/dL 03/24/22 03/24/22 Range/Units 01:38 11:24 APTT 31.5 H 45.7 H (22.0-30.0) sec D-Dimer (<0.60) mg/L FEU Glucose (74-99) mg/dL
[2022-03-24] MEDS: HEPARIN SOD,PORK IN 0.45% NACL 25,000 UNIT in 0.45% NACL 1 250ML.BAG IV SCH (16:47)
[2022-03-25] MEDS ORDERED: ATORVASTATIN 80 MG TAB PO STA (09:04)
[2022-03-25] MEDS: hydroCHLOROthiazide 12.5 MG CAP PO SCH (09:56)
[2022-03-25] MEDS: ASPIRIN 81 MG PO SCH (09:56)
[2022-03-25] MEDS ORDERED: VERAPAMIL 2.5 MG/ML 2 ML AMP ONE (10:08)
[2022-03-25] MEDS ORDERED: SODIUM CHLORIDE 0.9% 1,000 ML IV ONE (10:20)
[2022-03-25] MEDS ORDERED: fentaNYL (PF) 50 MCG/ML 2 ML AMP ONE (10:40)
[2022-03-25] MEDS: MIDAZOLAM 2 MG/2 ML VIAL IV ONE ×2 (10:40→10:52)
[2022-03-25] MEDS: fentaNYL (PF) 50 MCG/ML 2 ML AMP IV ONE ×2 (10:40→10:51)
[2022-03-25] MEDS ORDERED: LIDOCAINE 1% INJ 10MG/ML (5 ML VIAL-PF) SQ ONE (10:44)
[2022-03-25] MEDS ORDERED: VERAPAMIL SYRINGE (5 MG/10 ML) INTRAARTER ONE (10:45)
[2022-03-25] MEDS ORDERED: HEPARIN SODIUM 1,000 UN/ML (10ML VL) IV ONE ×2 (10:47)
[2022-03-25] MEDS ORDERED: HEPARIN SODIUM 1,000 UN/ML (10ML VL) ONE (10:49)
[2022-03-25] MEDS ORDERED: IOPAMIDOL-370 125ML BTL INJ ONE (10:56)
[2022-03-25] MEDS ORDERED: RX INFO: IV CONTRAST WAS GIVEN 1 EACH MISC MISCELLANE PRN (11:33)
[2022-03-25] MEDS ORDERED: SODIUM CHLORIDE 0.9% 1,000 ML IV SCH (11:45)
--- NOTE | 2022-03-25 12:24 | P.DS ---
Providers Date of admission: 03/23/22 19:16 Expected date of discharge: 03/25/22 Attending physician: Maria Eugenia Hood MD Consults: 03/23/22 19:17 Consult Physician Routine Consulting Provider: [facility] Consult Reason/Comments: unstable angina Do you want consulting provider notified?: Yes Primary care physician: Mary Marmolejo Hospital Course: Discharge Diagnosis: Chest pain, acute coronary event ruled out. Patient underwent cardiac cath showing normal coronary arteries. Hypertension. Monitor vital signs, Coreg decreased to 3.125 mg twice daily with meals and to continue hydrochlorothiazide 12.5 mg daily. Asymptomatic bradycardia, Home dose of carvedilol was decreased to 3.125 mg twice daily with meals. Nicotine dependence, recommend stopping Vaping. Hospital Course: Patient is a very pleasant 51-year-old female with a past medical history of hypertension. Patient presented to the emergency department on 03/23/22 with a chief complaint of awakening from sleep with chest pain/pressure accompanied by palpitations. She underwent full evaluation in the emergency department. Chest x-ray negative for acute cardiopulmonary process. CBC and CMP were unremarkable. Troponin was negative at less than 0.012. ProBNP was 59. EKG was completed revealing sinus bradycardia at 58 bpm with a first-degree AV block with OR interval of 228 ms. D-dimer was elevated at 1.27 and a CTA chest was completed negative for pulmonary emboli. Patient was admitted under our s ervices with consultation to cardiology. Troponins trended throughout the night and negative at less than 0.0124 draws. Echocardiogram was completed revealing a normal EF of 55-60% with no significant valvular abnormalities reported. Patient underwent cardiac cath on 03/25/22. Cardiac cath reporting normal coronary arteries with right dominant circulation. Cardiology stating patient's previous chest discomfort was likely noncardiac in origin and recommending aggressive risk factor modification and continued medical therapy. Patient is medically stable. She was found to have some episodes of bradycardia with heart rate dropping down to 49 bpm. Home dose of carvedilol was decreased to 3.125 mg twice daily with meals. Patient is medically stable at this time. Cardiac access site right wrist showing no signs of bleeding or hematoma. Patient medically stable for discharge at this time. Patient to follow-up with PCP in 1-2 days and cardiology in 1 week. Physical exam: Vital signs reviewed and stable. General: Nontoxic, no distress and appears stated age. Derm: Skin warm and dry, normal coloration for ethnicity. Head: Atraumatic, normocephalic and symmetric. Eyes: EOMs intact, no lid lag, and anicteric sclera Mouth: no lip lesions, mucus membranes moist Cardiovascular: regular rate and rhythm with normal S1S2, no murmur, positive posterior tibial pulses bilaterally, and cap refill < 2 seconds. Lungs: Respirations even, regular, and unlabored on room air. Lungs CTA bilaterally, no rhonchi, no rales, no wheezing, and no accessory muscle usage. Abdominal: soft, nontender to palpation, no guarding, no appreciable organomegaly Ext: ROM intact. No gross muscle atrophy, no edema, no contractures Neuro: Speech clear, face symmetrical and CN II-XII grossly intact with no noted focal neuro deficits Psych: Alert and oriented to person, place, time, and situation. Appropriate and pleasant affect. A total of 35 minutes of time were spent preparing this complex discharge summary. Pt was discharged on 03/25/22 at 12:23 PM. I reviewed the documentation as provided by the MALIKA above, who is the original author of this note. I agree with the documented assessment and plan, with the following changes: None Patient Condition at Discharge: Stable Plan - Discharge Summary Discharge Rx Participant: No New Discharge Prescriptions: New carvediloL [Coreg] 3.125 mg PO BID-W/MEALS 30 Days #60 tab Continue Magnesium Oxide [Mag-Ox] 400 mg PO DAILY Aspirin [[place] Aspirin EC] 81 mg PO ONCE PRN PRN Reason: Chest Pain Vitamin B Complex 1 cap PO DAILY Cholecalciferol [Vitamin D3 (25 Mcg = 1000 Iu)] 25 mcg PO DAILY hydroCHLOROthiazide [Hydrodiuril] 12.5 mg PO DAILY Folic Acid 0.8 mg PO DAILY Ascorbic Acid [Vitamin C] 1,000 mg PO DAILY Discontinued Carvedilol [Coreg] 12.5 mg PO BID Discharge Medication List Cholecalciferol [Vitamin D3 (25 Mcg = 1000 Iu)] 25 mcg PO DAILY 11/21/21 [History] Magnesium Oxide [Mag-Ox] 400 mg PO DAILY 11/21/21 [History] Vitamin B Complex 1 cap PO DAILY 11/21/21 [History] hydroCHLOROthiazide [Hydrodiuril] 12.5 mg PO DAILY 11/21/21 [History] Ascorbic Acid [Vitamin C] 1,000 mg PO DAILY 03/23/22 [History] Aspirin [[place] Aspirin EC] 81 mg PO ONCE PRN 03/23/22 [History] Folic Acid 0.8 mg PO DAILY 03/23/22 [History] carvediloL [Coreg] 3.125 mg PO BID-W/MEALS 30 Days #60 tab 03/25/22 [Rx] Follow up Appointment(s)/Referral(s): Mary Marmolejo MD [Primary Care Provider] - 1-2 days Norm Herrera MD [STAFF PHYSICIAN] - 1 Week Activity/Diet/Wound Care/Special Instructions: Activity: As tolerated. Take breaks as needed. Diet: Heart healthy and carb consistent diet. Avoid salts, or foods with hidden salts such as canned or boxed foods and frozen dinners. Extra salt makes your heart work harder and traps the fluid in your body for longer. Special Instructions: Take all of your medications as directed and remember to keep all of your doctor's appointments and follow-up as needed. Thank you for allowing us to participate in your care, it was truly a pleasure having you for our patient!!! Discharge Disposition: HOME SELF-CARE
--- NOTE | 2022-03-25 12:38 | CC ---
CARDIAC CATHETERIZATION REPORT INDICATION: Unstable angina. PROCEDURE NOTE: After obtaining informed consent, left heart catheterization and coronary angiogram were performed via the right radial artery using size 3-1/2 right and left Cole catheters. Left ventricular hemodynamics were obtained with the right Cole catheter. The patient tolerated the procedure well without any obvious immediate complications. Patient received moderate conscious sedation. Total sedation time was 18 minutes. I obtained right radial artery access using a micropuncture needle with standard Seldinger technique. Catheters and wires were moved into the ascending aorta under fluoroscopic guidance. The patient received 5 mg of verapamil and 5000 units of heparin as per protocol, and a TR band will be applied per standard protocols for hemostasis. FINDINGS: HEMODYNAMICS: Left ventricular end-diastolic pressure is 16 mm. There is no significant gradient across the aortic valve. LEFT VENTRICULOGRAM: Left ventriculogram was not performed. ANGIOGRAPHIC DATA: Right coronary artery is a large dominant vessel and is free of stenosis. Left main coronary artery is a normal-sized vessel and is free of disease. It divides into left anterior descending coronary artery and circumflex coronary artery. LAD and its branches, circumflex coronary artery and its branches are free of significant stenosis. CONCLUSIONS: Normal coronary arteries, right-dominant circulation. PLAN: Patient's chest discomfort is probably noncardiac in origin, and her management is going to be in the form of aggressive risk factor modification and medical therapy. Patient is doing well. We should be able to discharge her home this afternoon. MMODL / IJN: [id number] /
[2022-03-25] MEDS: carvediloL 3.125 MG TAB PO SCH ×2 (13:21→18:47)
[2022-03-25] MEDS: ACETAMINOPHEN TAB 325 MG TAB PO PRN (13:31)
[2022-03-25 14:45] VITALS: BP 138/71; TEMP 98.1
[2022-03-25 18:28] VITALS: PULSE 59
== END 2022-03-25 19:44 | disposition home or self-care (01) ==
LOC: EC 14:00 → 6NMEDSUR 19:16
PROVIDERS: ADMIT Internal Medicine; ATTEND Internal Medicine
DX: R07.89 Other chest pain (principal); I44.0 Atrioventricular block, first degree; R00.1 Bradycardia, unspecified; I10 Essential (primary) hypertension; E78.5 Hyperlipidemia, unspecified; R79.89 Other specified abnormal findings of blood chemistry; F17.290 Nicotine dependence, other tobacco product, uncomplicated; F31.9 Bipolar disorder, unspecified; Z79.899 Other long term (current) drug therapy; Z90.49 Acquired absence of other specified parts of digestive tract; Z98.891 History of uterine scar from previous surgery; Z98.890 Other specified postprocedural states; Z82.49 Family history of ischemic heart disease and other diseases of the circulatory system; Z71.6 Tobacco abuse counseling
CPT/HCPCS: 96376 ×2; 96366 ×3; 96365; 99285; 36415; 93005; 93306; 93458; 85379; 83880; 80053; 80048; 83735; 84484 ×2; 85025 ×2; 85610 ×2; 85730 ×3; 71046; 71275; G0378 ×3; C1894; J2250; J2001; J3010; J1644 ×5; Q9967 ×2

== ENCOUNTER 2022-09-25 04:47 | Emergency (ER) | payer MEDICARE, OTHER ==
[2022-09-25 04:52] VITALS: TEMP 97.5
[2022-09-25 05:35] LABS: Basophils # (A) 0.1 k/uL (0-0.2); Basophils % (A) 1 %; Eosinophils # (A) 0.2 k/uL (0-0.7); Eosinophils % (A) 2 %; HGB 13.1 gm/dL (11.4-16.0); Lymphocytes % (A) 31 %; MCH 30.5 pg (25.0-35.0); MCHC 34.5 g/dL (31.0-37.0); MCV 88.6 fL (80.0-100.0); Mean Platelet Volume 9.1; Monocytes # (A) 0.4 k/uL (0-1.0); Monocytes % (A) 4 %; Neutrophils # (A) 5.8 k/uL (1.3-7.7); Neutrophils % (A) 60 %; Platelet Count 242 k/uL (150-450); RBC 4.29 m/uL (3.80-5.40); RDW 12.9 % (11.5-15.5); WBC 9.6 k/uL (3.8-10.6)
[2022-09-25 05:45] LABS: ALT 25 U/L (4-34); AST 27 U/L (14-36); African American GFR (CKD) >90 (>60 ml/min/1.73 sqM); Albumin 4.2 g/dL (3.5-5.0); Alkaline Phosphatase 131 U/L (38-126); Anion Gap 11 mmol/L; Blood Urea Nitrogen 17 mg/dL (7-17); Calcium 9.4 mg/dL (8.4-10.2); Carbon Dioxide 26 mmol/L (22-30); Chloride 101 mmol/L (98-107); Glucose 129 mg/dL (74-99); Non-African American GFR(CKD) >90 (>60 ml/min/1.73 sqM); Potassium 3.6 mmol/L (3.5-5.1); Sodium 138 mmol/L (137-145); Total Bilirubin 0.3 mg/dL (0.2-1.3); Total Protein 7.2 g/dL (6.3-8.2)
[2022-09-25 05:51] LABS: INR 0.9 (<1.2); Partial Thromboplastin Time 24.3 sec (22.0-30.0); Prothrombin Time 9.5 sec (9.0-12.0)
--- NOTE | 2022-09-25 05:53 | XR ---
EXAMINATION TYPE: XR chest 2V DATE OF EXAM: 09/25/2022 COMPARISON: 03/23/2022 HISTORY: Dysrhythmia TECHNIQUE: FINDINGS: Heart and mediastinum are normal. Lungs are clear. Diaphragm is normal. Bony thorax appears normal. IMPRESSION: Normal chest. No change.
--- NOTE | 2022-09-25 06:45 | ED ---
Arrhythmia/Palpitations HPI - General Chief Complaint: Arrhythmia/Palpitations Stated Complaint: Chest Pain Time Seen by Provider: 09/25/22 05:05 Source: patient Mode of arrival: ambulatory - History of Present Illness Initial Comments: 52-year-old female with past medical history of hypertension presents emergency room and was reporting palpitations. States that her symptoms started yesterday around 6:30. Admits to a generalized chest discomfort with racing heart. Denies any provocative factors. No recent medication changes. No stimulant use. No recent upper respiratory infections or fevers. No shortness of breath. He did not attempt to take any medications for her symptoms. Her racing heart Her awake and therefore she presents for further evaluation. She did have a heart Regular this year which was negative for any disease. She follows with Dr. Alfaro from cardiology. No other alleviating, precipitating or modifying factors - Related Data Home Medications Medication Instructions Recorded Confirmed Cholecalciferol [Vitamin D3 (25 25 mcg PO DAILY 11/21/21 03/23/22 Mcg = 1000 Iu)] Magnesium Oxide [Mag-Ox] 400 mg PO DAILY 11/21/21 03/23/22 Vitamin B Complex 1 cap PO DAILY 11/21/21 03/23/22 hydroCHLOROthiazide [Hydrodiuril] 12.5 mg PO DAILY 11/21/21 03/23/22 Ascorbic Acid [Vitamin C] 1,000 mg PO DAILY 03/23/22 03/23/22 Aspirin [[place] Aspirin EC] 81 mg PO ONCE PRN 03/23/22 03/23/22 Folic Acid 0.8 mg PO DAILY 03/23/22 03/23/22 Previous Rx's Medication Instructions Recorded carvediloL [Coreg] 3.125 mg PO BID-W/MEALS 30 Days 03/25/22 #60 tab Allergies Allergy/AdvReac Type Severity Reaction Status Date / Time No Known Allergies Allergy Verified 09/25/22 04:52 Review of Systems ROS Statement: Those systems with pertinent positive or pertinent negative responses have been documented in the HPI. ROS Other: All systems not noted in ROS Statement are negative. Past Medical History Past Medical History: Fibromyalgia, Hypertension Additional Past Medical History / Comment(s): herniated disks History of Any Multi-Drug Resistant Organisms: None Reported Past Surgical History: Section, Cholecystectomy, Tonsillectomy Past Anesthesia/Blood Transfusion Reactions: Previous Problems w/ Anesthesia Additional Past Anesthesia/Blood Transfusion Reaction / Comment(s): pt reports waking up in the middle of every procedure shes ever had. Past Psychological History: Bipolar Smoking Status: Vaper Past Alcohol Use History: Occasional Past Drug Use History: None Reported - Past Family History Family Family Medical History: Coronary Artery Disease (CAD) General Exam General appearance: alert, in no apparent distress Head exam: Present: atraumatic, normocephalic, normal inspection Eye exam: Present: normal appearance, PERRL, EOMI. Absent: scleral icterus, conjunctival injection, periorbital swelling ENT exam: Present: normal exam, mucous membranes moist Neck exam: Present: normal inspection. Absent: tenderness, meningismus, lymphadenopathy Respiratory exam: Present: normal lung sounds bilaterally. Absent: respiratory distress, wheezes, rales, rhonchi, stridor Cardiovascular Exam: Present: regular rate, normal rhythm, normal heart sounds. Absent: systolic murmur, diastolic murmur, rubs, gallop, clicks GI/Abdominal exam: Present: soft, normal bowel sounds. Absent: distended, tenderness, guarding, rebound, rigid Extremities exam: Present: normal inspection, full ROM, normal capillary refill. Absent: tenderness, pedal edema, joint swelling, calf tenderness Back exam: Present: normal inspection Neurological exam: Present: alert, oriented X3, CN II-XII intact Psychiatric exam: Present: normal affect, normal mood Skin exam: Present: warm, dry, intact, normal color. Absent: rash Course Vital Signs 09/25/22 09/25/22 04:50 07:01 Temperature 97.5 F L Pulse Rate 81 68 Respiratory 17 18 Rate Blood Pressure 157/73 132/76 O2 Sat by Pulse 100 98 Oximetry EKG Findings - EKG Comments: EKG Findings:: EKG was interpreted by myself. Demonstrates sinus rhythm with a rate of 69. ME interval to O2. QRS 86. QTC of 431. No acute ST segment elevations or depressions concerning for ischemic changes or infarction. Medical Decision Making - Medical Decision Making Upon arrival patient was placed into room 2. There are history of physical exam is performed. 12 lead EKG was obtained which demonstrates no acute findings. Patient does remain on continuous pulse ox and cardiac monitoring. It is noted that the patient does have frequent PACs and that her symptoms are related to when she is experiencing these. IV is established laboratory studies were conducted. Chest x-ray was performed and interpreted by myself as negative for any acute process. I did discuss the patient's care with Dr. Pimentel. Due to her low resting heart rate she'll not be placed on any beta blockers at this time. We will set the patient up for a Holter monitor. She will follow up with copy center associate for further management return for any new or worsening symptoms. Patient was agreeable to discharge home in stable condition - Lab Data Result diagrams: 09/25/22 05:12 09/25/22 05:12 Lab Results 09/25/22 09/25/22 09/25/22 Range/Units 05:12 05:12 05:12 WBC 9.6 (3.8-10.6) k/uL RBC 4.29 (3.80-5.40) m/uL Hgb 13.1 (11.4-16.0) gm/dL Hct 38.0 (34.0-46.0) % MCV 88.6 (80.0-100.0) fL MCH 30.5 (25.0-35.0) pg MCHC 34.5 (31.0-37.0) g/dL RDW 12.9 (11.5-15.5) % Plt Count 242 (150-450) k/uL MPV 9.1 Neutrophils % 60 % Lymphocytes % 31 % Monocytes % 4 % Eosinophils % 2 % Basophils % 1 % Neutrophils # 5.8 (1.3-7.7) k/uL Lymphocytes # 3.0 (1.0-4.8) k/uL Monocytes # 0.4 (0-1.0) k/uL Eosinophils # 0.2 (0-0.7) k/uL Basophils # 0.1 (0-0.2) k/uL PT 9.5 (9.0-12.0) sec INR 0.9 (<1.2) APTT 24.3 (22.0-30.0) sec Sodium 138 (137-145) mmol/L Potassium 3.6 (3.5-5.1) mmol/L Chloride 101 (98-107) mmol/L Carbon Dioxide 26 (22-30) mmol/L Anion Gap 11 mmol/L BUN 17 (7-17) mg/dL Creatinine 0.69 (0.52-1.04) mg/dL Est GFR (CKD-EPI)AfAm >90 (>60 ml/min/1.73 sqM) Est GFR (CKD-EPI)NonAf >90 (>60 ml/min/1.73 sqM) Glucose 129 H (74-99) mg/dL Calcium 9.4 (8.4-10.2) mg/dL Total Bilirubin 0.3 (0.2-1.3) mg/dL AST 27 (14-36) U/L ALT 25 (4-34) U/L Alkaline Phosphatase 131 H (38-126) U/L Troponin I (0.000-0.034) ng/mL Total Protein 7.2 (6.3-8.2) g/dL Albumin 4.2 (3.5-5.0) g/dL TSH 2.270 (0.465-4.680) mIU/L 09/25/22 Range/Units 05:12 WBC (3.8-10.6) k/uL RBC (3.80-5.40) m/uL Hgb (11.4-16.0) gm/dL Hct (34.0-46.0) % MCV (80.0-100.0) fL MCH (25.0-35.0) pg MCHC (31.0-37.0) g/dL RDW (11.5-15.5) % Plt Count (150-450) k/uL MPV Neutrophils % % Lymphocytes % % Monocytes % % Eosinophils % % Basophils % % Neutrophils # (1.3-7.7) k/uL Lymphocytes # (1.0-4.8) k/uL Monocytes # (0-1.0) k/uL Eosinophils # (0-0.7) k/uL Basophils # (0-0.2) k/uL PT (9.0-12.0) sec INR (<1.2) APTT (22.0-30.0) sec Sodium (137-145) mmol/L Potassium (3.5-5.1) mmol/L Chloride (98-107) mmol/L Carbon Dioxide (22-30) mmol/L Anion Gap mmol/L BUN (7-17) mg/dL Creatinine (0.52-1.04) mg/dL Est GFR (CKD-EPI)AfAm (>60 ml/min/1.73 sqM) Est GFR (CKD-EPI)NonAf (>60 ml/min/1.73 sqM) Glucose (74-99) mg/dL Calcium (8.4-10.2) mg/dL Total Bilirubin (0.2-1.3) mg/dL AST (14-36) U/L ALT (4-34) U/L Alkaline Phosphatase (38-126) U/L Troponin I <0.012 (0.000-0.034) ng/mL Total Protein (6.3-8.2) g/dL Albumin (3.5-5.0) g/dL TSH (0.465-4.680) mIU/L Disposition Clinical Impression: Palpitations Disposition: HOME SELF-CARE Condition: Stable Instructions (If sedation given, give patient instructions): Heart Palpitations (ED) Additional Instructions: We will set you up with a Holter monitor and an appointment at the cardiology office. If you do not hear from us by tomorrow, please call the cardiology office to make the appointment. Return for any new or worsening symptoms. Is patient prescribed a controlled substance at d/c from ED?: No Referrals: Mary Marmolejo MD [Primary Care Provider] - 1-2 days Norm Herrera MD [STAFF PHYSICIAN] - 10/03/22 2:15 am Time of Disposition: 06:44
[2022-09-25 07:01] VITALS: BP 132/76; PULSE 68; RESP 18
== END 2022-09-25 07:01 | disposition home or self-care (01) ==
LOC: EC 04:47
DX: R00.2 Palpitations (principal); I10 Essential (primary) hypertension; F17.290 Nicotine dependence, other tobacco product, uncomplicated; Z90.49 Acquired absence of other specified parts of digestive tract; Z79.82 Long term (current) use of aspirin
CPT/HCPCS: 36415; 71046; 80053; 84443; 84484; 85025; 85610; 85730; 93005; 99285

== ENCOUNTER 2023-04-25 01:41 | Emergency (ER) | payer OTHER, BC, MEDICARE ==
[2023-04-25 02:09] VITALS: TEMP 97.9
--- NOTE | 2023-04-25 04:00 | ED ---
ENT HPI - General Chief complaint: ENT Stated complaint: [facility] - Nose Injury Time Seen by Provider: 04/25/23 03:15 Source: patient, RN notes reviewed, old records reviewed Mode of arrival: ambulatory Limitations: no limitations - History of Present Illness Initial comments: This is a 52-year-old female to the emergency department for evaluation patient's pain facial injury prior to arrival. Patient was working and had a steel gate hit herself in the nose. Patient does believe she has inflammation and deformity. No other complaints no injuries no loss of consciousness no headache MD complaint: trauma/injury, other (Nose pain) -: hour(s) Location: nose Severity: moderate Severity scale (1-10): 4 Quality: aching Consistency: constant Improves with: none Worsens with: none Associated Symptoms: other (0) - Related Data Home Medications Medication Instructions Recorded Confirmed Cholecalciferol [Vitamin D3 (25 25 mcg PO DAILY 11/21/21 03/23/22 Mcg = 1000 Iu)] Magnesium Oxide [Mag-Ox] 400 mg PO DAILY 11/21/21 03/23/22 Vitamin B Complex 1 cap PO DAILY 11/21/21 03/23/22 hydroCHLOROthiazide [Hydrodiuril] 12.5 mg PO DAILY 11/21/21 03/23/22 Ascorbic Acid [Vitamin C] 1,000 mg PO DAILY 03/23/22 03/23/22 Aspirin [[place] Aspirin EC] 81 mg PO ONCE PRN 03/23/22 03/23/22 Folic Acid 0.8 mg PO DAILY 03/23/22 03/23/22 Previous Rx's Medication Instructions Recorded carvediloL [Coreg] 3.125 mg PO BID-W/MEALS 30 Days 03/25/22 #60 tab Allergies Allergy/AdvReac Type Severity Reaction Status Date / Time No Known Allergies Allergy Verified 04/25/23 02:07 Review of Systems ROS Statement: Those systems with pertinent positive or pertinent negative responses have been documented in the HPI. ROS Other: All systems not noted in ROS Statement are negative. Past Medical History Past Medical History: Fibromyalgia, Hypertension Additional Past Medical History / Comment(s): herniated disks History of Any Multi-Drug Resistant Organisms: None Reported Past Surgical History: Section, Cholecystectomy, Tonsillectomy Additional Past Surgical History / Comment(s): Optic nerve sheath Past Anesthesia/Blood Transfusion Reactions: Previous Problems w/ Anesthesia Additional Past Anesthesia/Blood Transfusion Reaction / Comment(s): pt reports waking up in the middle of every procedure shes ever had. Past Psychological History: Bipolar Smoking Status: Vaper Past Alcohol Use History: Occasional Past Drug Use History: None Reported - Past Family History Family Family Medical History: Coronary Artery Disease (CAD) General Exam Limitations: no limitations General appearance: alert, in no apparent distress Head exam: Present: atraumatic, normocephalic, normal inspection Eye exam: Present: normal appearance, PERRL, EOMI. Absent: scleral icterus, conjunctival injection, periorbital swelling ENT exam: Present: normal exam, mucous membranes moist Neck exam: Present: normal inspection. Absent: tenderness, meningismus, lymphadenopathy Respiratory exam: Present: normal lung sounds bilaterally. Absent: respiratory distress, wheezes, rales, rhonchi, stridor Cardiovascular Exam: Present: regular rate, normal rhythm, normal heart sounds. Absent: systolic murmur, diastolic murmur, rubs, gallop, clicks GI/Abdominal exam: Present: soft, normal bowel sounds. Absent: distended, tenderness, guarding, rebound, rigid Extremities exam: Present: normal inspection, full ROM, normal capillary refill. Absent: tenderness, pedal edema, joint swelling, calf tenderness Back exam: Present: normal inspection Neurological exam: Present: alert, oriented X3, CN II-XII intact Psychiatric exam: Present: normal affect, normal mood Skin exam: Present: warm, dry, intact, normal color. Absent: rash Course Vital Signs 04/25/23 04/25/23 02:07 06:36 Temperature 97.9 F Pulse Rate 78 70 Respiratory 18 16 Rate Blood Pressure 126/57 130/68 O2 Sat by Pulse 98 97 Oximetry - Reevaluation(s) Reevaluation #1: 04/25/23 04:00 Medical records reviewed Reevaluation #2: Patient has no change in symptoms here in the ER Reevaluation #3: Patient informed of results and questions are answered Reevaluation #4: 04/25/23 04:00 Was pt. sent in by a medical professional or institution? @ -no Did you speak to anyone other than the patient for history? @ -no Did you review nursing and triage notes? @ -agree Were old charts reviewed? @ -yes Differential Diagnosis? @ -prior EKG interpreted by me (3pts min.)? @ -yes X-rays interpreted by me (1pt min.)? @ -no CT interpreted by me (1pt min.)? @ -yes U/S interpreted by me (1pt. min.)? @ -no What testing was considered but not performed? (CT, X-rays, U/S, labs)? Why? @ -no What meds were considered but not given? Why? @ -no Did you discuss the management of the patient with other professionals? @ -no Did you reconcile home meds? @ -no Was smoking cessation discussed for >3mins.? @ -no Was critical care preformed (if so, how long)? @ -no Were there social determinants of health that impacted care today? How? (Homelessness, low income, unemployed, alcoholism, drug addiction, transportation, low edu. Level, literacy, decrease access to med. care, alf, rehab)? @ -no Was there de-escalation of care discussed even if they declined? (Discuss DNR or withdrawal of care, Hospice)? @ -no What co-morbidities impacted this encounter? (DM, HTN, Smoking, COPD, CAD, Cancer, CVA, Hep., AIDS, mental health diagnosis, sleep apnea, morbid obesity)? @ -none Was patient admitted / discharged? @ -52 female to the emergency department for evaluation of head injury and nasal injury. Patient concern for nasal fracture. No acute medical injury is noted here in the ER patient can be discharged home Discharge Undiagnosed new problem with uncertain prognosis? @ -no Drug Therapy requiring intensive monitoring for toxicity (Heparin, Nitro, Insulin, Cardizem)? @ -no Were any procedures done? @ -no Diagnosis/symptom? @ -Nasal contusion Acute, or Chronic, or Acute on Chronic? @ -acute Uncomplicated (without systemic symptoms) or Complicated (systemic symptoms)? @ -complicated Side effects of treatment? @ -no Exacerbation, Progression, or Severe Exacerbation] @ -no Poses a threat to life or bodily function? @ -no Medical Decision Making - Medical Decision Making 52 female to the emergency department for evaluation of head injury and nasal injury. Patient concern for nasal fracture. No acute medical injury is noted here in the ER patient can be discharged home - Radiology Data Radiology results: report reviewed (CT brain and face is negative for traumatic injury), image reviewed Disposition Clinical Impression: Nose pain Disposition: HOME SELF-CARE Instructions (If sedation given, give patient instructions): Head Injury (ED) Is patient prescribed a controlled substance at d/c from ED?: No Referrals: Mary Marmolejo MD [Primary Care Provider] - 1-2 days
--- NOTE | 2023-04-25 05:46 | CT ---
EXAMINATION TYPE: CT brain wo con, CT facial bones wo con DATE OF EXAM: 04/25/2023 HISTORY: Fall injury with headache and facial pain CT DLP: 1800 mGycm. Automated Exposure Control for Dose Reduction was Utilized. TECHNIQUE: CT scan of the head and facial bones are performed without contrast. COMPARISON: Prior CT brain November 19, 2021. FINDINGS: There is no acute intracranial hemorrhage or midline shift identified. Ventricles and sul ci within normal limits in size for patient's age. Rudolph-white matter differentiation maintained. The calvarium is intact. The mandible is intact. Temporomandibular joints are maintained bilaterally. Nasal bones are intact. Zygomatic arches are intact. Orbital floors and peters are intact. The globes are intact bilaterally. Intraconal fat is preserved. The maxilla is intact. The pterygoid plates are intact. Paranasal sinuse s are grossly clear. IMPRESSION: 1. No acute intracranial hemorrhage or midline shift. No significant change from prior. 2. No acute displaced facial bone fracture.
[2023-04-25 06:52] VITALS: BP 130/68; PULSE 70; RESP 16
== END 2023-04-25 06:37 | disposition home or self-care (01) ==
LOC: EC 01:41
DX: S00.33XA Contusion of nose, initial encounter (principal); I10 Essential (primary) hypertension; F17.290 Nicotine dependence, other tobacco product, uncomplicated; Z79.82 Long term (current) use of aspirin; Z79.899 Other long term (current) drug therapy; W22.8XXA Striking against or struck by other objects, initial encounter; Y99.0 Civilian activity done for income or pay
CPT/HCPCS: 70450; 70486; 99284

== ENCOUNTER 2023-10-04 02:59 | Emergency (ER) | payer MEDICARE, BC ==
[2023-10-04] MEDS ORDERED: SODIUM CHLORIDE 0.9% 1,000 ML IV STA (04:42)
[2023-10-04] MEDS ORDERED: ONDANSETRON 4 MG/2 ML VIAL IVP STA (04:42)
[2023-10-04] MEDS ORDERED: MORPHINE SULFATE 4 MG/ML SYRINGE IVP STA (04:43)
--- NOTE | 2023-10-04 05:23 | ED ---
Abdominal Pain HPI - General Source: patient, RN notes reviewed, old records reviewed Mode of arrival: ambulatory Limitations: no limitations - History of Present Illness MD Complaint: abdominal pain -: hour(s) Location: RUQ, RLQ, epigastric, suprapubic Radiation: RLQ Migration to: RLQ, epigastric Severity: moderate Severity scale (1-10): 7 Quality: cramping, stabbing Consistency: constant Improves With: nothing Worsens With: nothing Associated Symptoms: nausea Treatments Prior to Arrival: other <Thien Forman - Last Filed: 10/04/23 06:28> <Lalito Braswell - Last Filed: 10/04/23 09:09> - General Chief Complaint: Abdominal Pain Stated Complaint: Abdominal pain Time Seen by Provider: 10/04/23 03:03 - History of Present Illness Initial Comments: This is a 53-year-old female to the emergency department for evaluation of abdominal pain. Patient does have persistent significant abdominal pain here in the ER right lower quadrant abdominal Occasionally's periumbilical abdominal pain suprapubic abdominal pain. Patient does believe she is without fever but does have positive nausea and vomiting. Patient does have history of gallbladder surgery but it was 30+ years ago. No travel history no sick contacts no other complaints (Thien Forman) - Related Data Home Medications Medication Instructions Recorded Confirmed Cholecalciferol [Vitamin D3 (25 25 mcg PO DAILY 11/21/21 10/04/23 Mcg = 1000 Iu)] Magnesium Oxide [Mag-Ox] 400 mg PO DAILY 11/21/21 10/04/23 Vitamin B Complex 1 cap PO DAILY 11/21/21 10/04/23 hydroCHLOROthiazide [Hydrodiuril] 12.5 mg PO DAILY 11/21/21 10/04/23 Ascorbic Acid [Vitamin C] 1,000 mg PO DAILY 03/23/22 10/04/23 Folic Acid 0.8 mg PO DAILY 03/23/22 10/04/23 Amitriptyline HCl [Elavil] 10 mg PO HS 10/04/23 10/04/23 Naproxen [Naprosyn] 500 mg PO BID PRN 10/04/23 10/04/23 carvediloL [Coreg] 3.125 mg PO BID 10/04/23 10/04/23 lisinopriL [Prinivil] 10 mg PO DAILY 10/04/23 10/04/23 metFORMIN HCL [Glucophage] 500 mg PO HS 10/04/23 10/04/23 Allergies Allergy/AdvReac Type Severity Reaction Status Date / Time No Known Allergies Allergy Verified 10/04/23 07:27 Review of Systems ROS Other: All systems not noted in ROS Statement are negative. <Thien Forman - Last Filed: 10/04/23 06:28> ROS Other: All systems not noted in ROS Statement are negative. <Lalito Braswell - Last Filed: 10/04/23 09:09> ROS Statement: Those systems with pertinent positive or pertinent negative responses have been documented in the HPI. Past Medical History Past Medical History: Fibromyalgia, Hypertension Additional Past Medical History / Comment(s): herniated disks History of Any Multi-Drug Resistant Organisms: None Reported Past Surgical History: Section, Cholecystectomy, Tonsillectomy Additional Past Surgical History / Comment(s): Optic nerve sheath Past Anesthesia/Blood Transfusion Reactions: Previous Problems w/ Anesthesia Additional Past Anesthesia/Blood Transfusion Reaction / Comment(s): pt reports waking up in the middle of every procedure shes ever had. Past Psychological History: Bipolar Smoking Status: Vaper Past Alcohol Use History: Occasional Past Drug Use History: None Reported - Past Family History Family Family Medical History: Coronary Artery Disease (CAD) <Thien Forman - Last Filed: 10/04/23 06:28> General Exam Limitations: no limitations General appearance: alert, in no apparent distress Head exam: Present: atraumatic, normocephalic, normal inspection Eye exam: Present: normal appearance, PERRL, EOMI. Absent: scleral icterus, conjunctival injection, periorbital swelling ENT exam: Present: normal exam, mucous membranes moist Neck exam: Present: normal inspection. Absent: tenderness, meningismus, lymph adenopathy Respiratory exam: Present: normal lung sounds bilaterally. Absent: respiratory distress, wheezes, rales, rhonchi, stridor Cardiovascular Exam: Present: regular rate, normal rhythm, normal heart sounds. Absent: systolic murmur, diastolic murmur, rubs, gallop, clicks GI/Abdominal exam: Present: soft, normal bowel sounds. Absent: distended, tenderness, guarding, rebound, rigid Extremities exam: Present: normal inspection, full ROM, normal capillary refill. Absent: tenderness, pedal edema, joint swelling, calf tenderness Back exam: Present: normal inspection Neurological exam: Present: alert, oriented X3, CN II-XII intact Psychiatric exam: Present: normal affect, normal mood Skin exam: Present: warm, dry, intact, normal color. Absent: rash <Thien Forman - Last Filed: 10/04/23 06:28> Course <Thien Forman - Last Filed: 10/04/23 06:28> Vital Signs 10/04/23 10/04/23 03:03 07:00 Temperature 98.5 F 97.6 F Pulse Rate 85 72 Respiratory 18 16 Rate Blood Pressure 193/81 144/76 O2 Sat by Pulse 99 96 Oximetry - Reevaluation(s) Reevaluation #1: 10/04/23 06:29 Medical record is reviewed (Thien Forman) Reevaluation #2: 10/04/23 06:29 Patient's pain is difficult to control (Thien Forman) Reevaluation #3: 10/04/23 06:29 Patient informed of results and questions answered (Thien Forman) Reevaluation #4: 10/04/23 06:29 Was pt. sent in by a medical professional or institution ([facility], TIME SIGNAL WIRER, urgent care, hospital, or fci...) When possible be specific @ -no Did you speak to anyone other than the patient for history (EMS, parent, family, police, friend...)? What history was obtained from this source @ -no Did you review nursing and triage notes (agree or disagree)? Why? @ -agree Are old charts reviewed (outside hosp., previous admission, EMS record, old EKG, old radiological studies, urgent care reports/EKG's, fci records)? Report findings @ -yes Differential Diagnosis (chest pain, altered mental status, abdominal pain women, abdominal pain men, vaginal bleeding, weakness, fever, dyspnea, syncope, headache, dizziness, GI bleed, back pain, seizure, CVA, palpatations, mental health, musculoskeletal)? @ -prior EKG interpreted by me (3pts min.). @ -yes X-rays interpreted by me (1pt min.). @ -yes CT interpreted by me (1pt min.). @ -no U/S interpreted by me (1pt. min.). @ -no What testing was considered but not performed or refused? (CT, X-rays, U/S, labs)? Why? @ -none What meds were considered but not given or refused? Why? @ -none Did you discuss the management of the patient with other professionals (professionals i.e. , PA, TIME SIGNAL WIRER, lab, RT, psych nurse, high school social science teacher, asp net developer, teacher, classification officer, pillowcase sewer)? Give summary @ -no Was smoking cessation discussed for >3mins.? @ -no Was critical care preformed (if so, how long)? @ -no Were there social determinants of health that impacted care today? How? (Homelessness, low income, unemployed, alcoholism, drug addiction, transportation, low edu. Level, literacy, decrease access to med. care, residential, rehab)? @ -none Was there de-escalation of care discussed even if they declined (Discuss DNR or withdrawal of care, Hospice)? DNR status @ -no What co-morbidities impacted this encounter? (DM, HTN, Smoking, COPD, CAD, Cancer, CVA, ARF, Chemo, Hep., AIDS, mental health diagnosis, sleep apnea, morbid obesity)? @ -none Was patient admitted / discharged? Hospital course, mention meds given and route, prescriptions, significant lab abnormalities, going to OR and other pertinent info. @ - Undiagnosed new problem with uncertain prognosis? @ -no Drug Therapy requiring intensive monitoring for toxicity (Heparin, Nitro, Insulin, Cardizem)? @ -no Were any procedures done? @ -no Diagnosis/symptom? @ - Acute, or Chronic, or Acute on Chronic? @ -Acute Uncomplicated (without systemic symptoms) or Complicated (systemic symptoms)? @ -Complicated Side effects of treatment? @ -no Exacerbation, Progression, or Severe Exacerbation? @ -exacerbation Poses a threat to life or bodily function? How? (Chest pain, USA, MA, pneumonia, PE, COPD, DKA, ARF, appy, cholecystitis, CVA, Diverticulitis, Homicidal, Suicidal, threat to staff... and all critical care pts) @ -yes (Thien Forman) Reevaluation #5: 10/04/23 06:29 Differential Abdominal Pain Women: Appendicitis, Cholecystitis, diverticulosis, ischemic bowel, pancreatitis, hepatitis, UTI, gastroenteritis, AAA, incarcerated hernia, bowel obstruction, constipation, inflammatory bowel, hepatitis, peptic ulcer disease, splenic infarction, perforated viscus, vulvitis, ovarian torsion, PID, kidney stone, placenta abruption, this is not meant to be an all-inclusive list (Thien Forman) Medical Decision Making - Lab Data Result diagrams: 10/04/23 04:52 10/04/23 04:52 <Thien Forman - Last Filed: 10/04/23 06:28> - Lab Data Result diagrams: 10/04/23 04:52 10/04/23 04:52 <Lalito Braswell - Last Filed: 10/04/23 09:09> - Medical Decision Making Patient's signed out to me by previous shift physician, Dr. Contreras Min. Briefly, patient is 53-year-old female presents emergency Department right-sided abdominal pain. Labs were reviewed. No leukocytosis. Metabolic panel is unremarkable. Very mild elevation of liver enzymes. Urinalysis negative. Plan sign out was to follow-up with pending ultrasound. Computed tomography scan had already been performed showing no acute processes. Ultrasound was unremarkable for any acute processes. Patient evaluated at bedside and I o'clock a.m. following stable medical condition. Patient is well-appearing and is agreeable for discharge with follow-up with [facility] care physician. (Lalito Braswell) - Lab Data Lab Results 10/04/23 10/04/23 10/04/23 Range/Units 04:52 04:52 04:52 WBC 10.3 (3.8-10.6) k/uL RBC 4.55 (3.80-5.40) m/uL Hgb 14.0 (11.4-16.0) gm/dL Hct 40.6 (34.0-46.0) % MCV 89.2 (80.0-100.0) fL MCH 30.9 (25.0-35.0) pg MCHC 34.6 (31.0-37.0) g/dL RDW 12.8 (11.5-15.5) % Plt Count 222 (150-450) k/uL MPV 8.5 Neutrophils % 60 % Lymphocytes % 31 % Monocytes % 4 % Eosinophils % 2 % Basophils % 1 % Neutrophils # 6.2 (1.3-7.7) k/uL Lymphocytes # 3.2 (1.0-4.8) k/uL Monocytes # 0.4 (0-1.0) k/uL Eosinophils # 0.2 (0-0.7) k/uL Basophils # 0.1 (0-0.2) k/uL Sodium 137 (137-145) mmol/L Potassium (3.5-5.1) mmol/L Chloride 102 (98-107) mmol/L Carbon Dioxide 23 (22-30) mmol/L Anion Gap 12 mmol/L BUN 17 (7-17) mg/dL Creatinine 0.71 (0.52-1.04) mg/dL Est GFR (CKD-EPI)AfAm >90 (>60 ml/min/1.73 sqM) Est GFR (CKD-EPI)NonAf >90 (>60 ml/min/1.73 sqM) Glucose 115 H (74-99) mg/dL Plasma Lactic Acid Enio 1.4 (0.7-2.0) mmol/L Calcium 9.5 (8.4-10.2) mg/dL Total Bilirubin 2.1 H (0.2-1.3) mg/dL AST 105 H (14-36) U/L ALT 57 H (4-34) U/L Alkaline Phosphatase 153 H (38-126) U/L Total Protein 9.7 H (6.3-8.2) g/dL Albumin 5.6 H (3.5-5.0) g/dL Amylase 105 (30-110) U/L Lipase 112 (23-300) U/L Urine Color Urine Appearance (Clear) Urine pH (5.0-8.0) Ur Specific [place] (1.001-1.035) Urine Protein (Negative) Urine Glucose (UA) (Negative) Urine Ketones (Negative) Urine Blood (Negative) Urine Nitrite (Negative) Urine Bilirubin (Negative) Urine Urobilinogen (<2.0) mg/dL Ur Leukocyte Esterase (Negative) 10/04/23 Range/Units 04:52 WBC (3.8-10.6) k/uL RBC (3.80-5.40) m/uL Hgb (11.4-16.0) gm/dL Hct (34.0-46.0) % MCV (80.0-100.0) fL MCH (25.0-35.0) pg MCHC (31.0-37.0) g/dL RDW (11.5-15.5) % Plt Count (150-450) k/uL MPV Neutrophils % % Lymphocytes % % Monocytes % % Eosinophils % % Basophils % % Neutrophils # (1.3-7.7) k/uL Lymphocytes # (1.0-4.8) k/uL Monocytes # (0-1.0) k/uL Eosinophils # (0-0.7) k/uL Basophils # (0-0.2) k/uL Sodium (137-145) mmol/L Potassium (3.5-5.1) mmol/L Chloride (98-107) mmol/L Carbon Dioxide (22-30) mmol/L Anion Gap mmol/L BUN (7-17) mg/dL Creatinine (0.52-1.04) mg/dL Est GFR (CKD-EPI)AfAm (>60 ml/min/1.73 sqM) Est GFR (CKD-EPI)NonAf (>60 ml/min/1.73 sqM) Glucose (74-99) mg/dL Plasma Lactic Acid Enio (0.7-2.0) mmol/L Calcium (8.4-10.2) mg/dL Total Bilirubin (0.2-1.3) mg/dL AST (14-36) U/L ALT (4-34) U/L Alkaline Phosphatase (38-126) U/L Total Protein (6.3-8.2) g/dL Albumin (3.5-5.0) g/dL Amylase (30-110) U/L Lipase (23-300) U/L Urine Color Yellow Urine Appearance Clear (Clear) Urine pH 6.0 (5.0-8.0) Ur Specific [place] 1.020 (1.001-1.035) Urine Protein Negative (Negative) Urine Glucose (UA) Negative (Negative) Urine Ketones Negative (Negative) Urine Blood Negative (Negative) Urine Nitrite Negative (Negative) Urine Bilirubin Negative (Negative) Urine Urobilinogen <2.0 (<2.0) mg/dL Ur Leukocyte Esterase Negative (Negative) Disposition <Thien Forman B - Last Filed: 10/04/23 06:28> Is patient prescribed a controlled substance at d/c from ED?: No Time of Disposition: 09:08 <Lalito Braswell - Last Filed: 10/04/23 09:09> Clinical Impression: Abdominal pain Disposition: HOME SELF-CARE Condition: Good Instructions (If sedation given, give patient instructions): Abdominal Pain (ED) Referrals: Mary Marmolejo MD [Primary Care Provider] - 1-2 days
[2023-10-04 05:27] LABS: Basophils # (A) 0.1 k/uL (0-0.2); Basophils % (A) 1 %; Eosinophils # (A) 0.2 k/uL (0-0.7); Eosinophils % (A) 2 %; HCT 40.6 % (34.0-46.0); Lymphocytes # (A) 3.2 k/uL (1.0-4.8); Lymphocytes % (A) 31 %; MCH 30.9 pg (25.0-35.0); MCHC 34.6 g/dL (31.0-37.0); MCV 89.2 fL (80.0-100.0); Mean Platelet Volume 8.5; Monocytes # (A) 0.4 k/uL (0-1.0); Monocytes % (A) 4 %; Neutrophils # (A) 6.2 k/uL (1.3-7.7); Neutrophils % (A) 60 %; Platelet Count 222 k/uL (150-450); RBC 4.55 m/uL (3.80-5.40); RDW 12.8 % (11.5-15.5); WBC 10.3 k/uL (3.8-10.6)
[2023-10-04 05:39] LABS: ALT 57 U/L (4-34); AST 105 U/L (14-36); African American GFR (CKD) >90 (>60 ml/min/1.73 sqM); Albumin 5.6 g/dL (3.5-5.0); Alkaline Phosphatase 153 U/L (38-126); Amylase 105 U/L (30-110); Anion Gap 12 mmol/L; Blood Urea Nitrogen 17 mg/dL (7-17); Calcium 9.5 mg/dL (8.4-10.2); Carbon Dioxide 23 mmol/L (22-30); Chloride 102 mmol/L (98-107); Glucose 115 mg/dL (74-99); Lipase 112 U/L (23-300); Non-African American GFR(CKD) >90 (>60 ml/min/1.73 sqM); Sodium 137 mmol/L (137-145); Total Bilirubin 2.1 mg/dL (0.2-1.3); Total Protein 9.7 g/dL (6.3-8.2)
--- NOTE | 2023-10-04 05:48 | CT ---
EXAMINATION TYPE: CT abdomen pelvis wo con DATE OF EXAM: 10/04/2023 HISTORY: right sided pain, gallbladder removal, no hx of stones CT DLP: 1079.4 mGycm. Automated Exposure Control for Dose Reduction was Utilized. TECHNIQUE: CT scan of the abdomen and pelvis is performed without oral or IV contrast. COMPARISON: Prior CT November 21, 2021 FINDINGS: Within the limitations of a non-contrast study, the following observations are made. LUNG BASES: No significant abnormality is appreciated. LIVER/GB: Liver is heterogeneously hypodense consistent with fatty infiltrative hepatocellular diseas e. Cholecystectomy clips are redemonstrated. No new biliary dilatation. PANCREAS: No significant abnormality is seen. SPLEEN: No significant abnormality is seen. ADRENALS: No significant abnormality is seen. KIDNEYS: No renal stones or hydronephrosis is seen bilaterally. No intraluminal calculus in the urina ry bladder. Focus of nondependent air axial image 90 in the bladder. BOWEL: A few distal colonic diverticula are redemonstrated. No CT evidence for acute diverticulitis. GENITAL ORGANS: Anteverted uterus. LYMPH NODES: No greater than 1cm abdominal or pelvic lymph nodes are appreciated. OSSEOUS STRUCTURES: No significant abnormality is seen. OTHER: Tiny fat-containing umbilical hernia sagittal image 66. IMPRESSION: Tiny focus of air within urinary bladder. Correlate for recent Blake catheterization othe rwise other etiologies need to be considered. No acute findings seen to account for patient's symptom s of right-sided pain.
[2023-10-04] MEDS ORDERED: AMPICILLIN-SULBACTAM 3 GM in SODIUM CHLORIDE 0.9% 100 ML IVPB STA (05:56)
[2023-10-04 05:57] LABS: Appearance,Urine Clear (Clear); Bilirubin,Urine Negative (Negative); Blood,Urine Negative (Negative); Color,Urine Yellow; Glucose,Urine (UA) Negative (Negative); Ketones,Urine Negative (Negative); Leukocyte Esterase,Urine Negative (Negative); Nitrite,Urine Negative (Negative); Protein,Urine Negative (Negative); Urobilinogen,Urine <2.0 mg/dL (<2.0)
[2023-10-04] MEDS ORDERED: HYDROmorphone 1 MG/ML 1 ML SYRINGE IVP STA ×2 (06:07→08:16)
--- NOTE | 2023-10-04 08:06 | US ---
EXAMINATION TYPE: US gallbladder DATE OF EXAM: 10/04/2023 COMPARISON: NONE CLINICAL INDICATION: Female, 53 years old with history of pain x 1 day in RLQ now within RUQ, Nausea, Hx HTN, Cholecystectomy, and prediabetes. TECHNIQUE: Multiple sonographic images of the right upper quadrant are obtained. FINDINGS: EXAM MEASUREMENTS: Liver Length: 13.6 cm Gallbladder: NA CBD: 7 mm Right Kidney: 9.9 x 5.6 x 6.2 cm COTTON DISPATCHER NOTES: RLQ scanned, appendix not visualized. Pancreas: Only a small portion of the pancreatic neck is seen. Remainder is obscured by bowel gas sh adowing. Liver: Diffuse increased echogenicity. No focal lesion seen. Gallbladder: surgically absent Evidence for sonographic Morris's sign: No CBD: Upper limits of normal at 0.7 mm. Right Kidney: wnl IMPRESSION: 1. Bile duct upper limits of normal in caliber, likely due to postcholecystectomy status. 2. Moderate to severe hepatic steatosis. Appropriate clinical management is advised. 3. Additional targeted scanning along the right lower quadrant. Unable to identify the appendix for a ssessment.
[2023-10-04 08:31] VITALS: RESP 16
[2023-10-04 09:23] VITALS: BP 140/81; PULSE 70; TEMP 98
== END 2023-10-04 09:21 | disposition home or self-care (01) ==
LOC: EC 02:59
DX: K76.0 Fatty (change of) liver, not elsewhere classified (principal); I10 Essential (primary) hypertension; F17.290 Nicotine dependence, other tobacco product, uncomplicated; Z86.59 Personal history of other mental and behavioral disorders; Z79.899 Other long term (current) drug therapy
CPT/HCPCS: 36415; 80053; 82150; 83605; 83690; 85025; 81003; 87040; 76705; 74176; 99285; 96365; 96366; 96375 ×3; 96376; 96361; J2270; J2405; J1170; J0295

== ENCOUNTER 2024-03-24 20:57 | Emergency (ER) | payer BC, MEDICARE ==
[2024-03-24 21:23] VITALS: TEMP 97.7
[2024-03-24 21:35] LABS: Basophils # (A) 0.1 k/uL (0-0.2); Basophils % (A) 1 %; Eosinophils # (A) 0.1 k/uL (0-0.7); Eosinophils % (A) 2 %; HCT 39.3 % (34.0-46.0); HGB 13.3 gm/dL (11.4-16.0); Lymphocytes # (A) 2.3 k/uL (1.0-4.8); Lymphocytes % (A) 36 %; MCH 30.5 pg (25.0-35.0); MCHC 33.8 g/dL (31.0-37.0); MCV 90.2 fL (80.0-100.0); Mean Platelet Volume 9.1; Monocytes # (A) 0.3 k/uL (0-1.0); Monocytes % (A) 4 %; Neutrophils # (A) 3.5 k/uL (1.3-7.7); Neutrophils % (A) 55 %; Platelet Count 221 k/uL (150-450); RBC 4.36 m/uL (3.80-5.40); RDW 12.5 % (11.5-15.5); WBC 6.3 k/uL (3.8-10.6)
[2024-03-24 21:52] LABS: ALT 40 U/L (4-34); AST 39 U/L (14-36); African American GFR (CKD) >90 (>60 ml/min/1.73 sqM); Albumin 4.2 g/dL (3.5-5.0); Alkaline Phosphatase 128 U/L (38-126); Anion Gap 8 mmol/L; Blood Urea Nitrogen 15 mg/dL (7-17); Carbon Dioxide 24 mmol/L (22-30); Chloride 106 mmol/L (98-107); Glucose 128 mg/dL (74-99); Magnesium 1.9 mg/dL (1.6-2.3); Non-African American GFR(CKD) 84 (>60 ml/min/1.73 sqM); Sodium 138 mmol/L (137-145); Total Bilirubin 0.3 mg/dL (0.2-1.3); Total Protein 6.8 g/dL (6.3-8.2)
--- NOTE | 2024-03-24 21:55 | ED ---
Chest Pain HPI - General Chief Complaint: Chest Pain Stated Complaint: Chest Pain, sob Time Seen by Provider: 03/24/24 21:42 Source: patient Mode of arrival: ambulatory Limitations: no limitations - History of Present Illness Initial Comments: This patient is a 53-year-old woman who states that tonight around 630 while she was doing some things at work she developed a constellation of symptoms including chest pain, dizziness, headache and nausea. Patient indicates the substernal area. She did not have diaphoresis, dyspnea, palpitations. She states that the symptoms persisted she came here to have evaluation. The patient indicates the headache started in the occipital area but is now diffuse. She denies any strokelike symptoms. No neck pain. No fever or chills. MD Complaint: chest pain Onset/Timin -: hour(s) Onset: during exertion Pain Location: substernal Pain Radiation: none Severity: moderate Quality: aching Consistency: now resolved Improves With: nothing Worsens With: nothing Anginal Symptoms: nausea Treatments Prior to Arrival: none - Related Data Home Medications Medication Instructions Recorded Confirmed Cholecalciferol [Vitamin D3 (25 25 mcg PO DAILY 11/21/21 10/04/23 Mcg = 1000 Iu)] Magnesium Oxide [Mag-Ox] 400 mg PO DAILY 11/21/21 10/04/23 Vitamin B Complex 1 cap PO DAILY 11/21/21 10/04/23 hydroCHLOROthiazide [Hydrodiuril] 12.5 mg PO DAILY 11/21/21 10/04/23 Ascorbic Acid [Vitamin C] 1,000 mg PO DAILY 03/23/22 10/04/23 Folic Acid 0.8 mg PO DAILY 03/23/22 10/04/23 Amitriptyline HCl [Elavil] 10 mg PO HS 10/04/23 10/04/23 Naproxen [Naprosyn] 500 mg PO BID PRN 10/04/23 10/04/23 carvediloL [Coreg] 3.125 mg PO BID 10/04/23 10/04/23 lisinopriL [Prinivil] 10 mg PO DAILY 10/04/23 10/04/23 metFORMIN HCL [Glucophage] 500 mg PO HS 10/04/23 10/04/23 Allergies Allergy/AdvReac Type Severity Reaction Status Date / Time No Known Allergies Allergy Verified 03/24/24 21:02 Review of Systems ROS Statement: Those systems with pertinent positive or pertinent negative responses have been documented in the HPI. ROS Other: All systems not noted in ROS Statement are negative. Constitutional: Denies: fever, chills, weakness Eyes: Denies: eye pain, vision change ENT: Denies: ear pain, congestion Respiratory: Denies: cough, dyspnea Cardiovascular: Reports: chest pain. Denies: palpitations, orthopnea, edema, syncope Gastrointestinal: Reports: nausea. Denies: abdominal pain, vomiting, diarrhea, constipation Genitourinary: Denies: dysuria, hematuria Musculoskeletal: Denies: back pain Skin: Denies: rash Neurological: Reports: headache. Denies: weakness, numbness, confusion EKG Findings - EKG Comments: EKG Findings:: The patient has Q waves in V1 V2 that are present on the old ECG of text - EKG Results: EKG: interpreted by DOT, sinus rhythm (Rate 70 bpm), normal axis, normal ST/T Past Medical History Past Medical History: Fibromyalgia, Hypertension Additional Past Medical History / Comment(s): herniated disks History of Any Multi-Drug Resistant Organisms: None Reported Past Surgical History: Section, Cholecystectomy, Tonsillectomy Additional Past Surgical History / Comment(s): Optic nerve sheath Past Anesthesia/Blood Transfusion Reactions: Previous Problems w/ Anesthesia Additional Past Anesthesia/Blood Transfusion Reaction / Comment(s): pt reports waking up in the middle of every procedure shes ever had. Past Psychological History: Bipolar Smoking Status: Vaper Past Alcohol Use History: Occasional Past Drug Use History: None Reported - Past Family History Family Family Medical History: Coronary Artery Disease (CAD) General Exam Limitations: no limitations General appearance: alert, in no apparent distress Head exam: Present: atraumatic, normocephalic Eye exam: Present: normal appearance. Absent: scleral icterus, conjunctival injection, nystagmus Neck exam: Present: normal inspection Respiratory exam: Present: normal lung sounds bilaterally. Absent: respiratory distress, wheezes, rales, rhonchi, stridor, accessory muscle use Cardiovascular Exam: Present: regular rate, normal rhythm, normal heart sounds. Absent: systolic murmur, diastolic murmur, rubs, gallop GI/Abdominal exam: Present: soft. Absent: distended, tenderness, guarding, rebound, rigid, mass Extremities exam: Present: normal inspection, normal capillary refill. Absent: pedal edema, calf tenderness Back exam: Present: normal inspection. Absent: CVA tenderness (R), CVA tenderness (L) Neurological exam: Present: alert, oriented X3, CN II-XII intact. Absent: motor sensory deficit Skin exam: Present: warm, dry, intact, normal color. Absent: rash Course Vital Signs 03/24/24 03/24/24 03/24/24 21:00 21:52 22:00 Temperature 97.7 F Pulse Rate 77 66 Pulse Rate [ 65 Etcher Machine ] Respiratory 18 24 Rate Blood Pressure 161/79 140/74 O2 Sat by Pulse 100 97 Oximetry 03/24/24 03/25/24 23:29 01:03 Temperature Pulse Rate 67 74 Pulse Rate [ Etcher Machine ] Respiratory 17 16 Rate Blood Pressure 176/65 149/57 O2 Sat by Pulse 99 97 Oximetry Chest Pain MDM - MDM On reevaluation, the patient states that she used to get migraine headaches, but it had been many years since she had 1. She states this is similar to the previous headaches. She did experience relief after additional medications and was feeling better and wanted to go home. Discussed following up with the dental lab technician. Discussed return parameters. The patient had chest x-ray that I interpreted as negative for acute infiltrate, pneumothorax, congestive heart failure Was pt. sent in by a medical professional or institution ([facility], [employer], urgent care, hospital, or fdc...) When possible be specific @ -[No] Did you speak to anyone other than the patient for history (EMS, parent, family, police, friend...)? What history was obtained from this source @ -[No] Did you review nursing and triage notes (agree or disagree)? Why? @ -[I reviewed and agree with nursing and triage notes] Were old charts reviewed (outside hosp., previous admission, EMS record, old EKG, old radiological studies, urgent care reports/EKG's, fdc records)? Report findings @ -[No old charts were reviewed] Differential Diagnosis (chest pain, altered mental status, abdominal pain women, abdominal pain men, vaginal bleeding, weakness, fever, dyspnea, syncope, headache, dizziness, GI bleed, back pain, seizure, CVA, palpatations, mental health, musculoskeletal)? @ -[Differential Headache: Migraine, tension, cluster, carbon monoxide, central venous thrombosis, pension karma temporal arteritis, acute closure glaucoma, intercranial hemorrhage, mastoiditis, sinusitis, head injury, this is not meant to be an all-inclusive list. EKG interpreted by me (3pts min.). @ -[I interpreted as above] X-rays interpreted by me (1pt min.). @ -[I interpreted as above CT interpreted by me (1pt min.). @ -[None done] U/S interpreted by me (1pt. min.). @ -[None done] What testing was considered but not performed or refused? (CT, X-rays, U/S, labs)? Why? @ -[None] What meds were considered but not given or refused? Why? @ -[None] Did you discuss the management of the patient with other professionals (professionals i.e. , PA, DRUM CLEANER, lab, RT, psych nurse, delinquency prevention social worker, metaphysics teacher, teacher, airfield engineer officer, nurse case management)? Give summary @ -[No] Was smoking cessation discussed for >3mins.? @ -[No] Was critical care preformed (if so, how long)? @ -[No] Were there social determinants of health that impacted care today? How? (Homelessness, low income, unemployed, alcoholism, drug addiction, transportation, low edu. Level, literacy, decrease access to med. care, penitentiary, rehab)? @ -[No] Was there de-escalation of care discussed even if they declined (Discuss DNR or withdrawal of care, Hospice)? DNR status @ -[No] What co-morbidities impacted this encounter? (DM, HTN, Smoking, COPD, CAD, Cancer, CVA, ARF, Chemo, Hep., AIDS, mental health diagnosis, sleep apnea, morbid obesity)? @ -[History of headaches. Diabetes. Hypertension Was patient admitted / discharged? Hospital course, mention meds given and route, prescriptions, significant lab abnormalities, going to OR and other pertinent info. @ -[Above Undiagnosed new problem with uncertain prognosis? @ -[No] Drug Therapy requiring intensive monitoring for toxicity (Heparin, Nitro, Insulin, Cardizem)? @ -[No] Were any procedures done? @ -[No] Diagnosis/symptom? @ -[Acute chest pain acute headache Acute, or Chronic, or Acute on Chronic? @ -[Acute Uncomplicated (without systemic symptoms) or Complicated (systemic symptoms)? @ -[Uncomplicated Side effects of treatment? @ -[No] Exacerbation, Progression, or Severe Exacerbation? @ -[No] Poses a threat to life or bodily function? How? (Chest pain, USA, MD, pneumonia, PE, COPD, DKA, ARF, appy, cholecystitis, CVA, Diverticulitis, Homicidal, Suicidal, threat to staff... and all critical care pts) @ -[No] Disposition Clinical Impression: Headache, Chest pain Disposition: HOME SELF-CARE Condition: Good Instructions (If sedation given, give patient instructions): Chest Pain (ED), Migraine Headache (ED) Is patient prescribed a controlled substance at d/c from ED?: No Referrals: Mary Marmolejo MD [Primary Care Provider] - 1-2 days Shahzad Pimentel MD [STAFF PHYSICIAN] - 1-2 days
[2024-03-24 21:58] LABS: INR 0.9 (<1.2); Partial Thromboplastin Time 24.4 sec (22.0-30.0)
--- NOTE | 2024-03-24 21:59 | XR ---
EXAMINATION TYPE: XR chest 2V DATE OF EXAM: 03/24/2024 9:47 PM CLINICAL INDICATION:Female, 53 years old with history of Chest Pain; [facility] COMPARISON: Chest radiographs from 12/13/2022. TECHNIQUE: XR chest 2V Frontal and lateral views of the chest. FINDINGS: Lungs/Pleura: There is no evidence of pleural effusion, focal consolidation, or pneumothorax. Pulmonary vascularity: Unremarkable. Heart/mediastinum: Cardiomediastinal silhouette is unremarkable. Musculoskeletal: No acute osseous pathology. IMPRESSION: No acute cardiopulmonary disease/process.
[2024-03-24] MEDS: ASPIRIN 81 MG PO STA (22:36)
[2024-03-24] MEDS: ACETAMINOPHEN TAB 325 MG TAB PO STA (22:37)
[2024-03-24] MEDS: METOCLOPRAMIDE 5 MG/ML 2 ML VIAL IVP STA (22:38)
[2024-03-24] MEDS: SODIUM CHLORIDE 0.9% 500 ML 500 ML IV STA (22:41)
[2024-03-24] MEDS: diphenhydrAMINE 50 MG/ML 1 ML VIAL IVP STA (23:19)
[2024-03-24] MEDS: SUMAtriptan succinate 6 MG/0.5 ML VIAL SQ STA (23:20)
[2024-03-25 01:45] VITALS: BP 149/57; PULSE 74; RESP 16
== END 2024-03-25 01:13 | disposition home or self-care (01) ==
LOC: EC 20:57
DX: R07.9 Chest pain, unspecified (principal); R51.9 Headache, unspecified; F17.290 Nicotine dependence, other tobacco product, uncomplicated; Z11.52 Encounter for screening for COVID-19; Z90.49 Acquired absence of other specified parts of digestive tract
CPT/HCPCS: 36415; 93005; 80053; 83735; 84484; 85025; 85610; 85730; 87636; 71046; 99285; 96374; 96375; 96372; J3030; J1200; J2765

== ENCOUNTER 2024-06-15 06:00 | Observation (INO) | payer BC, MEDICARE ==
[~2024-06-15 06:00] MED LIST: ASPIRIN 81 MG ONE; NITROGLYCERIN OINT 1 INCH/GM PACKET TOPICAL ONE; NITROGLYCERIN SL TABS 0.4 MG TAB SUBLINGUAL ONE; ONDANSETRON 4 MG/2 ML VIAL ONE; SODIUM CHLORIDE 0.9% 1,000 ML BAG ONE
[2024-06-15] MEDS ORDERED: KETOROLAC 15 MG/ML 1 ML VIAL ONE ×2 (07:37→14:18)
[2024-06-15] MEDS ORDERED: lisinopriL 10 MG TAB ONE (10:06)
[2024-06-15] MEDS ORDERED: hydroCHLOROthiazide 12.5 MG CAP ONE (10:09)
[2024-06-15] MEDS ORDERED: MORPHINE SULFATE 2 MG/ML SYRINGE ONE (17:52)
[2024-06-15] MEDS ORDERED: carvediloL 3.125 MG TAB ONE (22:35)
[2024-06-15] MEDS ORDERED: SODIUM CHLORIDE 0.9% 1,000 ML BAG ONE (22:50)
[2024-06-16] MEDS ORDERED: MORPHINE SULFATE 4 MG/ML SYRINGE ONE (00:10)
[2024-06-16] MEDS ORDERED: ATORVASTATIN 80 MG TAB ONE (06:08)
[2024-06-16] MEDS ORDERED: ASPIRIN 325 MG TAB ONE (06:08)
[2024-06-16] MEDS ORDERED: SODIUM CHLORIDE 0.9% 1,000 ML BAG ONE ×2 (07:00)
[2024-06-16] MEDS ORDERED: HEPARIN SODIUM,PORCINE 10,000 UNIT/ML 1 ML VIAL ONE (07:00)
[2024-06-16] MEDS ORDERED: LIDOCAINE 1% INJ 10MG/ML (20 ML MDV) ONE (07:23)
[2024-06-16] MEDS ORDERED: fentaNYL (PF) 50 MCG/ML 2 ML AMP ONE (07:23)
[2024-06-16] MEDS ORDERED: VERAPAMIL 2.5 MG/ML 2 ML AMP ONE (07:23)
[2024-06-16] MEDS ORDERED: HEPARIN SODIUM 1,000 UN/ML (10ML VL) ONE (07:23)
[2024-06-16] MEDS ORDERED: MIDAZOLAM 2 MG/2 ML VIAL ONE (07:23)
[2024-06-16] MEDS: IOPAMIDOL-370 100ML BTL INJ ONE (07:58)
--- NOTE | 2024-07-08 17:12 | CA ---
Stress Echo Report Nabila Duffy Age: 53 Gender: F : 1970 Exam Date: 06/15/2024 13:03 Exam Location: [place] Stress Ht (in): 67 Wt (lb): 240 Ordering Physician: Referring Physician: JUAN, Assessment Coordinator: Janessa Cortez RDCS Technologist Procedure CPT: Indication: ICD-9 Codes: Rhythm: Patient History: Chst pain and shortness of breath Cardiac Medications: Medications in past 24 hours: Contrast: Stress Results Protocol: Jordon Total dose(mL): Exercise Duration (min:sec): 6:[address] Depression (mm): Angina Score: Pastor Score: METS: 8.3 Resting HR: 53 Resting BP: 109 / 57 Peak HR: 147 Peak BP: 212 / 66 Max Predicted HR: 166 89 % Max Predicted HR Target HR: 141 Double Product: [id number] Stress Summary: Images to be reviewed on the echo machine BP Response: Reason for Termination: Reached target heart rate or work-load Cardiac Symptoms: Chest pain 5 ECG Analysis Resting ECG: Normal sinus rhythm, normal ECG Stress ECG: Greater than 1 mm of horizontal or downsloping ST depression - inferio-lateral leads Arrhythmia: None Echo Analysis Resting Echo: Normal resting echocardiogram. Peak Echo Analysis: No segmental wall motion abnormalities MEASUREMENTS (Male/Female) Normal Values CONCLUSIONS 1. Abnormal stress electrocardiographic response to exercise 2. Chest discomfort during exercise 3. Normal stress echocardiogram at peak exercise Dr. Moshe Alfaro MD (Electronically Signed) Final Date: 15 June 2024 13:38
--- NOTE | 2024-07-10 11:01 | CA ---
Transthoracic Echo Report Name: Nabila Duffy Age: 53 Gender: F : 1970 Exam Date: 06/15/2024 13:17 Exam Location: [place] Echo Ht (in): 67 Wt (lb): 250 Ordering Physician: Attending/Referring Phys: Senior Bookkeeper Janessa Cortez RDCS Procedure CPT: Indications: Cardiac Hx: Technical Quality: Good Contrast 1: Total Dose (mL): Contrast 2: Total Dose (mL): MEASUREMENTS (Male / Female) Normal Values 2D ECHO LV Diastolic Diameter PLAX 5.0 cm 4.2 - 5.9 / 3.9 - 5.3 cm LV Systolic Diameter PLAX 2.9 cm IVS Diastolic Thickness 1.0 cm 0.6 - 1.0 / 0.6 - 0.9 cm LVPW Diastolic Thickness 1.0 cm 0.6 - 1.0 / 0.6 - 0.9 cm LV Relative Wall Thickness 0.4 RV Internal Dim ED PLAX 3.2 cm LA Systolic Diameter LX 4.2 cm 3.0 - 4.0 / 2.7 - 3.8 cm LA Volume 70.6 cm??? 18 - 58 / 22 - 52 cm??? LA Volume Index 29.8 cm???/m??? 16 - 28 cm???/m??? M-MODE Aortic Root Diameter MM 2.7 cm AV Cusp Separation MM 2.0 cm DOPPLER AV Peak Velocity 224.0 cm/s AV Peak Gradient 20.1 mmHg AV Mean Velocity 132.1 cm/s AV Mean Gradient 8.6 mmHg AV Velocity Time Integral 50.0 cm MV Area PHT 3.1 cm??? Mitral E Point Velocity 122.0 cm/s Mitral A Point Velocity 135.4 cm/s Mitral E to A Ratio 0.9 MV Deceleration Time 243.6 ms TR Peak Velocity 254.4 cm/s TR Peak Gradient 25.9 mmHg Right Ventricular Systolic Press 30.0 mmHg FINDINGS Left Ventricle Left ventricular ejection fraction is estimated at 55-60 %. Left ventricular cavity size normal. Normal left ventricular systolic function with no obvious regional wall motion abnormalities. Right Ventricle Normal right ventricular size and function. Right ventricular systolic pressure within normal limits. Right Atrium Normal right atrial size. No right atrial thrombus or mass seen. Left Atrium Mildly increased left atrial diameter. Mildly increased left atrial volume. Mildly increased left atrial area. Mitral Valve Structurally normal mitral valve. No mitral stenosis. Mild mitral regurgitation. Aortic Valve Trileaflet aortic valve. Focal thickening of the aortic valve cusps. Mild aortic stenosis with a peak gradient of 20 mmHg and a mean gradient of 9 mmHg. Tricuspid Valve Structurally normal tricuspid valve. Mild tricuspid regurgitation. Pulmonic Valve Structurally normal pulmonic valve. Trace pulmonic regurgitation. Pericardium No pericardial or pleural effusion. Aorta Normal size aortic root and proximal ascending aorta. CONCLUSIONS 1. Normal left ventricular size and systolic function 2. Mild mitral and tricuspid regurgitation with no evidence of pulmonary hypertension Previewed by: Dr. Moshe Alfaro MD (Electronically Signed) Final Date: 17 June 2024 07:12
--- NOTE | 2024-07-24 13:06 | XR ---
EXAM: XR Chest, 1 View CLINICAL HISTORY: Chest pain and HTN TECHNIQUE: Frontal view of the chest. COMPARISON: No relevant prior studies available. FINDINGS: Lungs:Unremarkable. No consolidation. Pleural space:Unremarkable. No pneumothorax. Heart:Unremarkable. No cardiomegaly. Mediastinum:Unremarkable. Normal mediastinal contour. Bones/joints:Unremarkable. No acute fracture. IMPRESSION: No evidence of acute cardiopulmonary disease. Radiologist: Rey Patton M.D. Electronically Signed: 06/15/24 03:47 Study ready at 02:22 and initial results transmitted at 03:47 [facility]
== END 2024-06-16 15:37 | disposition home or self-care (01) ==
LOC: 6NMEDSUR 06:00
PROVIDERS: ADMIT Hospitalist; ATTEND Hospitalist
DX: I25.110 Atherosclerotic heart disease of native coronary artery with unstable angina pectoris (principal); I10 Essential (primary) hypertension; I44.0 Atrioventricular block, first degree; R00.1 Bradycardia, unspecified; I49.3 Ventricular premature depolarization; J44.9 Chronic obstructive pulmonary disease, unspecified; R73.03 Prediabetes; M79.7 Fibromyalgia; F17.290 Nicotine dependence, other tobacco product, uncomplicated; R60.9 Edema, unspecified; E66.9 Obesity, unspecified; Z68.36 Body mass index [BMI] 36.0-36.9, adult; Z79.899 Other long term (current) drug therapy
CPT/HCPCS: 71045; 80061; 83036; 92978; 93005; 93306; 93351; 93458; 96361; 96372; 96374; 96375; 96376; 99291

== ENCOUNTER 2024-06-18 04:20 | Emergency (ER) | payer MEDICARE, BC ==
[2024-06-18] MEDS ORDERED: MAG HYDROX/AL HYDROX/SIMETH 30 ML CUP ONE (10:03)
[2024-06-18] MEDS ORDERED: LIDOCAINE VISCOUS 2% 15 ML CUP ONE (10:04)
[2024-06-18] MEDS ORDERED: HYOSCYAMINE ELIXIR 250 MCG/10 ML BTL ONE (10:04)
--- NOTE | 2024-07-08 11:24 | XR ---
EXAMINATION TYPE: XR chest 2V DATE OF EXAM: 06/18/2024 COMPARISON: Chest radiographs from 03/24/2024 TECHNIQUE: XR chest 2V Frontal and lateral views of the chest. CLINICAL INDICATION:Female, 53 years old with history of CHEST PAIN; FINDINGS: Lungs/Pleura: There is no evidence of pleural effusion, focal consolidation, or pneumothorax. Pulmonary vascularity: Unremarkable. Heart/mediastinum: Cardiomediastinal silhouette is prominent in size. Musculoskeletal: No acute osseous pathology. IMPRESSION: No acute cardiopulmonary disease/process.
--- NOTE | 2024-07-09 05:47 | CT ---
Patient: Nabila Duffy Ordering Physician: Unknown, Unknown ID: [id number] Phone, Pager: Phone: N/ A Pager: N/A : 1970 Age/Gender: 53Y, M Primary Location: N/A Procedure: CTA CHEST PE PROTOCO L Study Date: 06/18/2024 10:20:00 AM CTA CHEST EXAMINATION TYPE: CT angio chest DATE OF EXAM: 06/18/2024 INDICATION: Chest pain short of breath CT DLP: 507.6 mGycm, Automated exposure control for dose reduction was used. CONTRAST: Patient injected with 30 mL of Isovue 300. COMPARISON: None TECHNIQUE: CT of the chest is performed on a spiral scan at 2 mm thick sections. Study is performed with intravenous contrast timed for evaluation for pulmonary embolism. This will limit additional po rtions of the evaluation. 3-D MIP images reconstructed by the technologist are reviewed on the compu ter in the coronal and sagittal planes. FINDINGS: No persistent filling defects are evident to suggest an acute pulmonary embolism. No mediastinal or hilar adenopathy enlarged by CT criteria is evident. The ascending aorta diameter at the level of the main pulmonary artery is 2.6 cm. The main pulmonary artery diameter at the bifurcation is 2.3 cm. Lung windows are clear. Limited CT sections were through the upper abdomen. Upper abdomen appears unremarkable. IMPRESSION: 1. No acute pulmonary embolism. 2. No acute pulmonary process.
== END 2024-06-18 11:55 | disposition home or self-care (01) ==
LOC: EC 04:20
DX: R07.89 Other chest pain (principal)
CPT/HCPCS: 71046; 71275; 93005; 99285